=== PATIENT | female | born 1960 | race Caucasian/White ===

== ENCOUNTER 2016-11-13 12:18 | Emergency (ER) | payer OTHER ==
[~2016-11-13 12:18] MED LIST: CLONAZEPAM1 MG PO; CYANOCOBAL1000 MCG/2 IM; ESCITALOPRAM OX20 MG PO; FIORICET 50-301 EACH PO; HYGROTON 25MG T25 MG PO; PREDNISONE 20MG20 MG PO; PROAIR HFA8.5 GM INH; PROPRANOLOL HCL40 M1 PO; VICODIN5-300 PO; VITAMIN D250000 UNIT PO
--- NOTE | 2016-11-13 13:58 | ED GENERAL ADULT ---
History of Present Illness General Chief Complaint: General Adult Stated Complaint: WEAKNESS L LEG AND HIP PAIN Source: patient Exam Limitations: no limitations Vital Signs & Intake/Output Vital Signs & Intake/Output ED Intake and Output 11/14 0000 11/13 1200 Intake Total Output Total 1 Balance -1 Output, Urine 1 Allergies Coded Allergies: Penicillins (Severe, UNKNOWN PER PT 01/10/16) Reconcile Medications Albuterol Sulfate (Albuterol Sulfate Hfa) 0.09 MG/Actuation EM 2 PUFF INH PRN SHORTNESS OF BREATH (Reported) 90 MCG PER PUFF Butalb/Acetaminophen/Caffeine (Fioricet 50-300-40 MG Capsule) 50 MG-300 MG-40 MG CAPSULE 1 TAB PO Q6P PRN MIGRAINE HEADACHE Chlorthalidone (Hygroton 25MG Tablet) 25 MG TAB 1 TAB PO DAILY BP (Reported) Clonazepam 1 MG TAB 1 TAB PO TID PRN ANXIETY (Reported) CYANOCOBALAMIN (VITAMIN B-12) (Cyanocobalamin Injection) 1,000 MCG/ML CHEMA 1 ML IM Q30D SUPPLEMENT (Reported) ERGOCALCIFEROL (VITAMIN D2) (Vitamin D2) 50,000 IU SGL 50,000 IU PO Q30D VITAMIN D SUPPLEMENT (Reported) Escitalopram Oxalate 20 MG TAB 1 TAB PO DAILY MENTAL HEALTH (Reported) HYDROCODONE/ACETAMINOPHEN (Hydrocodon-Acetaminophen 5-325) 1 TAB TAB 1 TAB PO TID PRN pain Naproxen (Naprosyn) 500 MG TABLET 1 TAB PO BID PRN PAIN AND INFLAMMATION Prednisone 20 MG TAB 2 TAB PO DAILY HEADACHES Propranolol Hydrochloride (Propranolol HCl) 10 MG TAB 1 TAB PO BID BP/ANXIETY (Reported) Triage Note: PT PRESENTS TO ER C/O OF PAIN AND WEAKNESS TO LEFT LEG. PT STATES PAIN STARTS AT LEFT HIP AREA AND RADIATES DOWN ENTIRE LEG. PT STATES SHE HAS A HX OF MS AND THROMBOPHLEBITIS AND EVERYTIME HER THROMBOPHLEBITIS ACTS UP SHE HAS TO GET ULTRASOUNDED Triage Nurses Notes Reviewed? yes HPI: This patient is a 56-year-old female with a past medical history including multiple sclerosis and thrombophlebitis who presented to the emergency department today for evaluation of pain in her left lower leg. The patient reported that she first noticed the pain on Friday and reported that it has been worsening again. She reported that the pain gets up to a 20 out of 10 and is located primarily on the inside of her left knee and tends to shoot up to her side and lower back. She also reported intermittent chest pain and difficulty breathing due to this pain. She feels left-sided calf pain with ambulation which also exacerbates the pain. No palliative factors. The patient reported that she was told that if she had leg pain to come to the emergency department for rule out DVT. The patient denied any arm pain, jaw pain, headaches, visual changes, or any other associated symptoms. No bowel or bladder incontinence. No saddle paresthesias. No urinary symptoms. (ANIA MERA PA-C) Past History Travel History Traveled to [place] past 21 day No Medical History Any Pertinent Medical History? 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 No (ANIA MERA PA-C) Review of Systems Review of Systems Constitutional: Reports: no symptoms. EENTM: Reports: no symptoms. Respiratory: Reports: see HPI. Cardiovascular: Reports: see HPI. GI: Reports: no symptoms. Genitourinary: Reports: no symptoms. Musculoskeletal: Reports: see HPI. Skin: Reports: no symptoms. Neurological/Psychological: Reports: no symptoms. All Other Systems: Reviewed and Negative (ANIA MERA PA-C) Physical Exam Physical Exam General Appearance: well developed/nourished, no apparent distress, alert, awake Comments: Well-developed well-nourished person in no acute distress HEENT: Normal EENT exam, head normocephalic, moist mucous membranes Pupils equally round and reactive to light. Neck: Supple, no lymphadenopathy Back: Normal inspection. No midline tenderness. No CVA tenderness. Cardiovascular: Regular rate and rhythm with no murmurs, rubs, or gallops. No carotid bruits. No JVD Respiratory: Chest nontender. No respiratory distress. Breath sounds clear to auscultation bilaterally with no wheezes, rales, rhonchi Abdomen: Soft, nontender and nondistended Extremity: No edema, normal and equal pulses. Left-sided calf tenderness. Positive Homans sign. Tenderness to palpation over the medial aspect of the left knee with no knee joint effusion or overlying erythema or edema. Full range of motion at the knee, ankle, and hip. Neuro: Alert oriented x3, cranial nerves II through XII grossly intact. Skin: No appreciable rash on exposed skin, skin is warm and dry. Psych: Mood and affect is normal Core Measures ACS in differential dx? Yes CVA/TIA Diagnosis: No Severe Sepsis Present: No Septic Shock Present: No (SAMARIA AVITIA,ANIA) Progress Differential Diagnoses I considered the following diagnoses in my evaluation of the patient: [ Ureterolithiasis, urinary tract infection, pyelonephritis, superficial thrombophlebitis, DVT, PE, ACS] Plan of Care: Orders Procedure Date/time Status TROPONIN LEVEL 11/13 1343 Complete D-DIMER 11/13 1343 Complete COMPREHENSIVE METABOLIC PANEL 11/13 1343 Complete CBC WITHOUT DIFFERENTIAL 11/13 134 Complete EKG 11/13 1226 Active Laboratory Tests 11/13/16 1405: Anion Gap 7, Estimated GFR > 60, BUN/Creatinine Ratio 20.0, Glucose 90, Calcium 9.1, Total Bilirubin 0.7, AST 16, ALT 29, Alkaline Phosphatase 92, Troponin I < 0.01, Total Protein 7.4, Albumin 4.3, Globulin 3.1, Albumin/Globulin Ratio 1.4, D-Dimer 200, CBC w Diff NO MAN DIFF REQ, RBC 4.91, MCV 89.1, MCH 29.8, RDW 14.0, MPV 9.3, Gran % 63.9, Lymphocytes % 30.8, Monocytes % 3.6, Eosinophils % 0.9, Basophils % 0.8, Absolute Granulocytes 6.6 H, Absolute Lymphocytes 3.2, Absolute Monocytes 0.4, Absolute Eosinophils 0.1, Absolute Basophils 0.1, PUBS MCHC 33.4 Diagnostic Imaging: Viewed by Me: CT Scan, Ultrasound. Discussed w/RAD: CT Scan, Ultrasound. Radiology Impression: PATIENT: BURAK GUTIÉRREZ PRESENT AGE: 56 PATIENT ACCOUNT NO: [id number] : 60 LOCATION: [facility] ORDERING PHYSICIAN: ANIA MERA PA-C SERVICE DATE: 11/13/16 EXAM TYPE: CAT - CT LUMB SPINE WO IV CONTRAST EXAMINATION: CT LUMBAR SPINE WITHOUT CONTRAST CLINICAL INFORMATION: Evaluate for disc herniation. Canal stenosis. Pain. COMPARISON: No relevant prior imaging is available. TECHNIQUE: Helical non -contrast CT images were obtained through the lumbar spine and 1.25 and 2.5 mm axial reconstructions were reviewed along with sagittal and coronal MPRs. DLP: 1115 mGy-cm. FINDINGS: There is anatomic alignment and position of the vertebral bodies and posterior elements of the lumbar spine in the sagittal dimension. Vertebral body heights are preserved. Intervertebral disc spaces are maintained at all levels. No evidence of acute fracture. At T12-L1, L1-L2, and L2-L3 the annular contours are normal. No canal or neuroforaminal compromise at these 3 levels. At L3-L4 there is a shallow left foraminal protrusion causing mild mass effect on the foraminal segment of the left L3 nerve root. Bilateral facet degenerative change. No canal stenosis. At L4-L5 there is a diffuse annular bulge. Advanced bilateral facet degenerative change. No canal stenosis. No foraminal nerve root compression. At L5-S1 there is a diffuse annular bulge. Advanced bilateral facet degenerative change. No canal stenosis. No foraminal nerve root compression. Limited visualization of the retroperitoneal structures reveals no abnormal finding. Psoas and paraspinal muscle groups are symmetric. IMPRESSION: There is a shallow left foraminal protrusion at L3-L4 that causes no more than mild mass effect on the foraminal segment of left L3 nerve root. Otherwise no canal or neuroforaminal compromise within the lumbar spine. There are advanced facet degenerative changes at the levels of L3-L4, L4-L5, and L5- S1. DICTATED BY: GAGAN STANTON MD DATE/TIME DICTATED:11/13/161418 BELT PICKER:ROCÍO DATE/TIME TRANSCRIBED:11/13/161418 CONFIDENTIAL, DO NOT COPY WITHOUT APPROPRIATE AUTHORIZATION. <Electronically signed in Other Vendor System> SIGNED BY: GAGAN STANTON MD 11/13/161426, PATIENT: BURAK GUTIÉRREZ PRESENT AGE: 56 PATIENT ACCOUNT NO: [id number] : 60 LOCATION: [facility] ORDERING PHYSICIAN: ANIA MERA PA-C SERVICE DATE: 11/13/16 EXAM TYPE: US - US-UNILATERAL VENOUS DOPPLER EXAMINATION: US TRIPLEX LOWER EXTREMITY, LEFT CLINICAL INFORMATION: Left lower extremity pain. COMPARISON: Venous duplex examinations dated 07/10/2016 and 09/04. TECHNIQUE: Color-flow triplex imaging with spectral analysis and compression Doppler were performed on the lower extremities. FINDINGS: Respiratory variation, normal compression and augmented flow are noted throughout the left lower extremity. The visualized common femoral vein, proximal greater saphenous vein, femoral vein, profunda femoral vein, popliteal vein and visualized mid calf venous segments show no evidence of deep venous thrombosis. There is no Cisse's cyst. IMPRESSION: Normal triplex scan without evidence of deep venous thrombosis involving the left lower extremity. DICTATED BY: PATRIA PALMER MD DATE/TIME DICTATED:11/13/161520 BELT PICKER: ROCÍO DATE/TIME TRANSCRIBED:11/13/161520 CONFIDENTIAL, DO NOT COPY WITHOUT APPROPRIATE AUTHORIZATION. <Electronically signed in Other Vendor System> SIGNED BY: PATRIA PALMER MD 11/13/161527 Initial ED EKG: normal axis, normal intervals, normal sinus rhythm, no ST T wave changes, 83 beats per minute (ANIA MERA PA-C) Departure Departure Disposition: HOME OR SELF CARE Condition: Stable Clinical Impression Primary Impression: Thrombophlebitis Referrals: BAHMAN LOZOYA MD (PCP/Family) AUDI OALKEY MD Additional Instructions: Please apply warm compresses to the affected area. Take naproxen as prescribed for pain and inflammation. You may call the vascular physician whose information has been provided to you in this packet for further evaluation. Return to the emergency department for any worsening symptoms or concerns. Departure Forms: Customer Survey General Discharge Information Prescriptions: Current Visit Scripts Naproxen (Naprosyn) 1 TAB PO BID PRN PAIN AND INFLAMMATION #20 TAB (ANIA MERA PA-C) PA/APARTMENT MAINTENANCE Co-Sign Statement Statement: ED Attending supervision documentation- [] I saw and evaluated the patient. I have also reviewed all the pertinent lab results and diagnostic results. I agree with the findings and the plan of care as documented in the PA's/APARTMENT MAINTENANCE's documentation. [X] I have reviewed the ED Record and agree with the PA's/APARTMENT MAINTENANCE's documentation. [] Additions or exceptions (if any) to the PAs/APARTMENT MAINTENANCE's note and plan are summarized below: [] (MILLI REICH,GEREMIAS) Critical Care Note Critical Care Note Critical Care Time: non-applicable (SAMARIA AVITIA,ANIA)
[2016-11-13 14:13] LABS: ABSOLUTE BASOPHIL COUNT 0.1 /CUMM (0.0-0.2); ABSOLUTE EOSINOPHIL COUNT 0.1 /CUMM (0.0-0.7); ABSOLUTE GRANULOCYTE CT 6.6 /CUMM (1.4-6.5); ABSOLUTE LYMPH COUNT 3.2 /CUMM (1.2-3.4); ABSOLUTE MONOCYTE COUNT 0.4 /CUMM (0.10-0.60); BASOPHIL % 0.8 % (0.0-2.0); EOSINOPHIL % 0.9 % (0-5); GRANULOCYTE % 63.9 % (42.2-75.2); HEMATOCRIT 43.7 % (37-47); MEAN CORPUSCULAR HGB 29.8 PG (27.0-31.0); MEAN CORPUSCULAR HGB CONC 33.4 G/DL (33.0-37.0); MEAN CORPUSCULAR VOLUME 89.1 FL (81.0-99.0); MEAN PLATELET VOLUME 9.3 FL (7.4-10.4); PLATELET COUNT 184 /CUMM (130-400); RED BLOOD CELL CT 4.91 /CUMM (4.20-5.40); WHITE BLOOD CELL COUNT 10.4 /CUMM (4.8-10.8)
--- NOTE | 2016-11-13 14:27 | CT SCAN REPORT ---
EXAMINATION: CT LUMBAR SPINE WITHOUT CONTRAST CLINICAL INFORMATION: Evaluate for disc herniation. Canal stenosis. Pain. COMPARISON: No relevant prior imaging is available. TECHNIQUE: Helical non-contrast CT images were obtained through the lumbar spine and 1.25 and 2.5 mm axial reconstructions were reviewed along with sagittal and coronal MPRs. DLP: 1115 mGy-cm. FINDINGS: There is anatomic alignment and position of the vertebral bodies and posterior elements of the lumbar spine in the sagittal dimension. Vertebral body heights are preserved. Intervertebral disc spaces are maintained at all levels. No evidence of acute fracture. At T12-L1, L1-L2, and L2-L3 the annular contours are normal. No canal or neuroforaminal compromise at these 3 levels. At L3-L4 there is a shallow left foraminal protrusion causing mild mass effect on the foraminal segment of the left L3 nerve root. Bilateral facet degenerative change. No canal stenosis. At L4-L5 there is a diffuse annular bulge. Advanced bilateral facet degenerative change. No canal stenosis. No foraminal nerve root compression. At L5-S1 there is a diffuse annular bulge. Advanced bilateral facet degenerative change. No canal stenosis. No foraminal nerve root compression. Limited visualization of the retroperitoneal structures reveals no abnormal finding. Psoas and paraspinal muscle groups are symmetric. IMPRESSION: There is a shallow left foraminal protrusion at L3-L4 that causes no more than mild mass effect on the foraminal segment of left L3 nerve root. Otherwise no canal or neuroforaminal compromise within the lumbar spine. There are advanced facet degenerative changes at the levels of L3-L4, L4-L5, and L5-S1.
--- NOTE | 2016-11-13 15:28 | ULTRASOUND REPORT ---
EXAMINATION: US TRIPLEX LOWER EXTREMITY, LEFT CLINICAL INFORMATION: Left lower extremity pain. COMPARISON: Venous duplex examinations dated 07/10/2016 and 09/04/2007. TECHNIQUE: Color-flow triplex imaging with spectral analysis and compression Doppler were performed on the lower extremities. FINDINGS: Respiratory variation, normal compression and augmented flow are noted throughout the left lower extremity. The visualized common femoral vein, proximal greater saphenous vein, femoral vein, profunda femoral vein, popliteal vein and visualized mid calf venous segments show no evidence of deep venous thrombosis. There is no Cisse's cyst. IMPRESSION: Normal triplex scan without evidence of deep venous thrombosis involving the left lower extremity.
[2016-11-13] MEDS ORDERED: NAPROSYN500 M1 PO (15:48)
[2016-11-13 15:52] VITALS: BP 161/87
== END 2016-11-13 16:00 ==
LOC: ERH 12:18
PROVIDERS: Physician Assistant
DX: I80.9 Phlebitis and thrombophlebitis of unspecified site (principal)
CPT/HCPCS: 93005; 93010

== ENCOUNTER 2017-01-06 22:09 | Emergency (ER) | payer OTHER ==
[~2017-01-06] VITALS: Ht 162.6 cm; Wt 81.6 kg
[~2017-01-06 22:09] MED LIST changes: +NAPROSYN500 M1 PO
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
[2017-01-06 23:20] VITALS: BP 147/90
--- NOTE | 2017-01-06 23:28 | RADIOLOGY REPORT ---
EXAMINATION: XR WRIST, LEFT CLINICAL INFORMATION: Laceration left anterior wrist. COMPARISON: No relevant prior imaging available. TECHNIQUE: AP, lateral, and oblique views of the left wrist. FINDINGS: There is no retained radiodense foreign body. No acute fracture or dislocation. Joint spaces are maintained. Proximal and distal carpal rows are intact. Negative ulnar variance. Mild swelling along the volar surface of the left wrist at the base of the hypothenar eminence. IMPRESSION: Unremarkable examination with no evidence of a radiodense retained foreign body.
== END 2017-01-06 23:22 ==
LOC: ERH 22:09
DX: S61.512A Laceration without foreign body of left wrist, initial encounter (principal); W25.XXXA Contact with sharp glass, initial encounter; Y92.9 Unspecified place or not applicable; Y93.9 Activity, unspecified
CPT/HCPCS: 73110-LT; 90471; 90714

== ENCOUNTER 2017-03-17 13:56 | Emergency (ER) | payer OTHER ==
[~2017-03-17] VITALS: Ht 160 cm; Wt 84.8 kg
[2017-03-17] MEDS ORDERED: DEXTROAMP-AMPHE10 MG PO (14:56)
[2017-03-17] MEDS ORDERED: TOPIRAMATE25 M2 PO (14:59)
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
[2017-03-17 16:13] LABS: ABSOLUTE BASOPHIL COUNT 0.1 /CUMM (0.0-0.2); ABSOLUTE EOSINOPHIL COUNT 0.1 /CUMM (0.0-0.7); ABSOLUTE GRANULOCYTE CT 9.5 /CUMM (1.4-6.5); ABSOLUTE LYMPH COUNT 3.9 /CUMM (1.2-3.4); ABSOLUTE MONOCYTE COUNT 0.5 /CUMM (0.10-0.60); BASOPHIL % 0.6 % (0.0-2.0); EOSINOPHIL % 0.7 % (0-5); MEAN CORPUSCULAR HGB 29.5 PG (27.0-31.0); MEAN CORPUSCULAR HGB CONC 33.2 G/DL (33.0-37.0); MEAN CORPUSCULAR VOLUME 88.8 FL (81.0-99.0); PLATELET COUNT 223 /CUMM (130-400); RBC DISTRIBUTION WIDTH 13.6 % (11.5-14.5); RED BLOOD CELL CT 5.51 /CUMM (4.20-5.40)
[2017-03-17 16:15] LABS: GRANULOCYTE % 67.4 % (42.2-75.2)
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
[2017-03-18 13:01] VITALS: BP 140/88
== END 2017-03-18 13:45 ==
LOC: ERH 13:56
PROVIDERS: Emergency Medicine
DX: F31.9 Bipolar disorder, unspecified (principal)
CPT/HCPCS: 80307; G0463; G0480

== ENCOUNTER 2018-02-11 16:40 | Inpatient (IN) | payer OTHER ==
[~2018-02-11] VITALS: Ht 162.6 cm; Wt 83.9 kg
[~2018-02-11 16:40] MED LIST changes: +DEXTROAMP-AMPHE10 MG PO; +PERCOCET 5-3251 EACH PO; +TOPIRAMATE25 M2 PO
[2018-02-11 17:19] LABS: ABSOLUTE BASOPHIL COUNT 0 /CUMM (0.0-0.2); ABSOLUTE EOSINOPHIL COUNT 0.2 /CUMM (0.0-0.7); ABSOLUTE GRANULOCYTE CT 8.7 /CUMM (1.4-6.5); ABSOLUTE LYMPH COUNT 3.4 /CUMM (1.2-3.4); ABSOLUTE MONOCYTE COUNT 0.7 /CUMM (0.10-0.60); BASOPHIL % 0.4 % (0.0-2.0); EOSINOPHIL % 1.2 % (0-5); GRANULOCYTE % 66.6 % (42.2-75.2); HEMATOCRIT 48.8 % (37-47); MEAN CORPUSCULAR HGB 29.5 PG (27.0-31.0); MEAN CORPUSCULAR HGB CONC 32.7 G/DL (33.0-37.0); MEAN CORPUSCULAR VOLUME 90.2 FL (81.0-99.0); MEAN PLATELET VOLUME 9.2 FL (7.4-10.4); PLATELET COUNT 243 /CUMM (130-400); RBC DISTRIBUTION WIDTH 14.7 % (11.5-14.5); RED BLOOD CELL CT 5.42 /CUMM (4.20-5.40); WHITE BLOOD CELL COUNT 13.1 /CUMM (4.8-10.8)
--- NOTE | 2018-02-11 17:46 | ED CARDIAC/CP/PALPITATIONS ---
See Addendum History of Present Illness General Chief Complaint: General Adult Stated Complaint: X2MO "HEART FLUTTERS" LUE NUMB HEART POUNDING Source: patient Exam Limitations: no limitations Allergies Coded Allergies: Penicillins (Severe, UNKNOWN PER PT 01/10/16) Reconcile Medications Albuterol Sulfate (Proair Hfa) 90 MCG HFA.AER.AD 2 PUF INH Q4-6 PRN PRN SHORTNESS OF BREATH (Reported) Butalb/Acetaminophen/Caffeine (Fioricet 50-300-40 MG Capsule) 50 MG-300 MG-40 MG CAPSULE 1 TAB PO Q6P PRN MIGRAINE HEADACHE Cyanocobalamin (Vitamin B-12) (Cyanocobalamin Injection) 1,000 MCG/ML VIAL 1 ML IM QSUN VITAMIN SUPPORT (Reported) Dextroamphetamine/Amphetamine (Dextroamp-Amphetamin 10 MG Tab) 10 MG TABLET 1 TAB PO BID MS (Reported) Ergocalciferol (Vitamin D2) (Vitamin D2) 50,000 UNIT CAPSULE 1 CAP PO QSUN VITAMIN SUPPORT (Reported) Escitalopram Oxalate 20 MG TABLET 1 TAB PO DAILY MENTAL HEALTH (Reported) Oxycodone HCl/Acetaminophen (Percocet 5-325 MG Tablet) 5 MG-325 MG TABLET 1 TAB PO TID PRN PAIN Propranolol HCl 40 MG TABLET 1 TAB PO DAILY BP (Reported) Topiramate 25 MG TABLET 1 TAB PO BID HEADACHE (Reported) Triage Note: 57 YO FEMALE TO TRIAGE C/O FEELING OF HEART RACING YESTERDAY, STATES "I WANT TO GET IT CHECKED OUT" DENIES HEART RACING AT THIS TIME. STATES "I JUST FEEL TIRED RIGHT NOW" STATES "I AM JUST EXHAUSTED" Triage Nurses Notes Reviewed? yes Onset: Abrupt Duration: day(s): (1), better, changing over time, intermittent Timing: recent history Quality/Severity: moderate, pressure Location: central Radiation: shoulders, arms Activities at Onset: rest Prior Chest Pain/Card Workup: no prior chest pain, no prior cardiac workup, non- cardiac Nitro Today/Relief: no nitro taken today Aspirin Today: 325 mg x 1, provided by ED Associated Symptoms: palpitations, shortness of breath, chest pain, nausea vomiting LMP (ages 10-50): post menopausal : No Patient currently breastfeeds: No HPI: 57 year old female past medical history of hypertension and multiple sclerosis as her evaluation of palpitations, chest pain, shortness of breath and fatigue. Patient states that she's been having palpitations intimately over the past month. States that they occur randomly. Last night he palpitations were very severe. This episode was also associated with chest pain shortness of breath nausea and vomiting. The pain is located in the center of her chest and radiates the left upper extremity. Described as pressure intermittently sharp. This lasted for approximately 2 hours before resolving. She states that she woke up today with shortness of breath but no more chest pain palpitations nausea vomiting. No dizziness or lightheadedness. No hemoptysis or lower extremity edema. She's never had a heart attack in the past. She denies worsening symptoms on exertion. No history of coronary artery disease that she knows about. She's never seen a forklift driver. No back pain abdominal pain. No recent surgery. (Franko Nguyen) Vital Signs & Intake/Output Vital Signs & Intake/Output Vital Signs Date Time Temp Pulse Resp B/P B/P Pulse O2 O2 Flow FiO2 Mean Ox Delivery Rate 02/11 1858 98.4 75 18 142/84 98 Room Air 02/11 1647 98.6 106 18 152/92 98 Room Air (Anna REICH,Rob Tam) Past History Travel History Traveled to [place] past 21 day No Medical History Any Pertinent Medical History? see below for history Neurological: multiple sclerosis, TRIGEMINAL NEURALGIA EENT: NONE Cardiovascular: hypertension Respiratory: NONE Gastrointestinal: NONE Hepatic: NONE Renal: NONE Musculoskeletal: THROMBOPHLEBITIS Psychiatric: NONE Endocrine: NONE Blood Disorders: NONE Cancer(s): NONE CLIENT CARE SPECIALIST/Reproductive: NONE Tetanus Vaccine: 01/06/17 Surgical History Surgical History: non-contributory Psychosocial History Who do you live with Patient/Self What is your primary language Sammarinese Tobacco Use: Current Daily Use Daily Tobacco Use Amount/Type: => 5 Cigarettes daily Family History Hx Contributory? No (Franko Nguyen) Review of Systems Review of Systems Constitutional: Reports: malaise, weakness. EENTM: Reports: no symptoms. Respiratory: Reports: see HPI, short of breath. Cardiovascular: Reports: see HPI, chest pain, palpitations. GI: Reports: nausea, vomiting. Genitourinary: Reports: no symptoms. Musculoskeletal: Reports: no symptoms. Skin: Reports: no symptoms. Neurological/Psychological: Reports: no symptoms. Hematologic/Endocrine: Reports: no symptoms. Immunologic/Allergic: Reports: no symptoms. All Other Systems: Reviewed and Negative (Franko Nguyen) Physical Exam Physical Exam General Appearance: well developed/nourished, no apparent distress, alert, awake Head: atraumatic, normal appearance Eyes: Bilateral: normal appearance, PERRL, EOMI. Ears, Nose, Throat: normal pharynx, normal ENT inspection, hearing grossly normal Neck: normal inspection, supple, full range of motion, no JVD no carotid bruits Respiratory: normal breath sounds, chest non-tender, no respiratory distress, lungs clear Cardiovascular: regular rate/rhythm, normal peripheral pulses Peripheral Pulses: 2+ radial (R), 2+ radial (L) Gastrointestinal: normal bowel sounds, soft, non-tender, no organomegaly Back: normal inspection, normal range of motion, no vertebral tenderness Extremities: normal inspection, normal range of motion, no edema Neurologic/Psych: no motor/sensory deficits, awake, alert, oriented x 3, normal gait, normal mood/affect Skin: intact, normal color, warm/dry Lymphatic: no anterior cervical obed Core Measures ACS in differential dx? Yes CVA/TIA Diagnosis No Sepsis Present: No Sepsis Focused Exam Completed? No (Franko Nguyen) Progress Differential Diagnosis: AMI, aortic dissection, atrial fibrillation, CHF/pulm edema, costochondritis, musculoskeletal pain, myocarditis, pancreatitis, pericarditis, pneumonia, pneumothorax, PSVT, pulmonary embolism, PUD/GERD, PVCs/ PACs, unstable angina, V-fib/V-Tach, WPW syndrome Diagnostic Imaging: Viewed by Me: Radiology Read. Discussed w/RAD: Radiology Read. CXR Impression: PATIENT: BURAK GUTIÉRREZ PRESENT AGE: 57 PATIENT ACCOUNT NO: [id number] : 60 LOCATION: [facility] ORDERING PHYSICIAN: Franko ANTONIO SERVICE DATE: 02/11/18 EXAM TYPE: RAD - XRY- PORTABLE CHEST XRAY EXAMINATION: XR PORTABLE CHEST CLINICAL INFORMATION: Chest pain and shortness of breath COMPARISON: 11/25/2006 TECHNIQUE: Portable frontal view of the chest was obtained. FINDINGS: Cardiac leads overlie the chest. The lungs are well expanded. There is no focal consolidation, edema, or effusion. No pneumothorax. The cardiomediastinal silhouette is within normal limits. No acute osseous abnormality. IMPRESSION: No acute pulmonary findings. DICTATED BY: Andrew Martinez MD DATE/TIME DICTATED:02/11/181830 IMMIGRATION INSPECTOR: ROCÍO DATE/TIME TRANSCRIBED:02/11/181830 CONFIDENTIAL, DO NOT COPY WITHOUT APPROPRIATE AUTHORIZATION. <Electronically signed in Other Vendor System> SIGNED BY: Anrdew Martinez MD 02/11/181835 Initial ED EKG: normal sinus rhythm, LEFT ATRIAL ABN Prior EKG: unchanged Rhythm Strip: normal sinus rhythm (aMynor ANTONIO,Franko) Plan of Care: Orders Procedure Date/time Status Heart Healthy Diet 02/12 B Active TROPONIN LEVEL 02/12 0500 Active LIPID PANEL 02/12 0500 Active GLYCOSYLATED HGB 02/12 0500 Active EKG 02/12 0500 Active TROPONIN LEVEL 02/11 2300 Active EKG 02/11 2300 Active FingerStick- Glucose 02/11 1958 Active Pathway - chart 02/11 1955 Active House Staff 02/11 1955 Active Patient Data 02/11 1955 Active Code Status 02/11 1955 Active Patient Data 02/11 194 Active Admit to inpatient 02/11 1934 Active Add-on Test (ER Only) 02/11 1806 Active Add-on Test (ER Only) 02/11 1800 Active Intake & Output 02/11 1715 Active PARTIAL THROMBOPLASTIN TIME 02/11 1711 Complete PROTHROMBIN TIME 02/11 1711 Complete B-TYPE NATRIURETIC PEP (BNP) 02/11 1711 Complete D-DIMER 02/11 1655 Complete Telemetry/Hoop Punch Operator Helper 02/11 165 Active URINE DRUG SCREEN FOR ER ONLY 02/11 1654 Complete URINALYSIS 02/11 1654 Complete TSH REFLEX 02/11 1654 Complete TROPONIN LEVEL 02/11 1654 Complete MAGNESIUM 02/11 165 Complete COMPREHENSIVE METABOLIC PANEL 02/11 1654 Complete CBC WITHOUT DIFFERENTIAL 02/11 165 Complete EKG 02/11 165 Active VTE Mechanical Prophylaxis 02/11 UNK Active Current Medications Sig/Jair Start time Last Medication Dose Stop Time Status Admin Atorvastatin Calcium 40 MG 1700 02/12 1700 AC (Lipitor) Aspirin 81 MG DAILY 02/12 09 AC (Aspirin) Clopidogrel Bisulfate 75 MG DAILY 02/12 09 AC (Plavix) Morphine Sulfate 2 MG Q4P PRN 02/12 2000 AC (MORPHINE SULFATE) Heparin Sodium 25,000 UNIT Q24H 02/11 1815 AC 02/11 (Porcine) 183 (Heparin) Sodium Chloride 500 ML Propranolol HCl 60 MG ONCE ONE 02/11 1745 CAN (Inderal 40 MG 02/11 1746 Tablet) Laboratory Tests 02/11/18 1723: Urine Opiates Screen < 100, Methadone Screen < 40, Barbiturate Screen < 60, Ur Phencyclidine Scrn < 6.00, Amphetamines Screen 1401 H, U Benzodiazepines Scrn < 85, Urine Cocaine Screen < 50, Urine Cannabis Screen 69.90 H, Urinalysis MOD H , Urine Color YEL, Urine Clarity HAZY H, Urine pH 6.0, Ur Specific [place] >= 1.030, Urine Protein NEG, Urine Ketones NEG, Urine Nitrite NEG, Urine Bilirubin NEG, Urine Urobilinogen 0.2, Ur Leukocyte Esterase NEG, Ur Microscopic SEDIMENT EXAMINED, Urine WBC 1-3 H, Ur Epithelial Cells FEW, Urine Crystals RARE [place] OX, Urine Bacteria MANY H, Urine Hemoglobin NEG, Urine Glucose NEG 02/11/18 1711: Anion Gap 11, Estimated GFR > 60, BUN/Creatinine Ratio 22.5, Glucose 100 H, Calcium 9.6, Magnesium 1.8, Total Bilirubin 0.6, AST 24, ALT 21, Alkaline Phosphatase 84, Troponin I 1.05 *H, Xcv-X-Jokmgkokmbs Pept 882 H, Total Protein 7.2, Albumin 4.1, Globulin 3.1, Albumin/Globulin Ratio 1.3, TSH &T3 &Free T4 Intrp 1.480, PT 12.1, INR 1.11, APTT 29, D-Dimer High Sensitivty < 200, CBC w Diff NO MAN DIFF REQ, RBC 5.42 H, MCV 90.2, MCH 29.5, MCHC 32.7 L, RDW 14.7 H , MPV 9.2, Gran % 66.6, Lymphocytes % 26.1, Monocytes % 5.7, Eosinophils % 1.2, Basophils % 0.4, Absolute Granulocytes 8.7 H, Absolute Lymphocytes 3.4, Absolute Monocytes 0.7 H, Absolute Eosinophils 0.2, Absolute Basophils 0 Patient seen and evaluated. She is reporting episodes of chest pain shortness breath palpitations that occurred last night lasted for 2 hours. Symptoms improved after sleeping when she woke up today she only had shortness of breath. No more chest pain or palpitations. Vital signs are stable. EKG does not show any acute changes. Blood work was obtained and shows a troponin of 1.05. D- dimer is negative chest x-ray is clear. Remaining blood work does not show any significant changes. Spoke with Dr. Rodrigues and his partner from cardiology. They recommended aspirin Plavix and heparin. Patient denies any melena or rectal bleeding. They recommend admitting to the ICU for possibel type 1 NSTEMI. Patient will require telemetry, serial enzymes, serial EKGs, cardiology consult, IV heparin, medication adjustment, echocardiogram, stress test, monitoring of vital signs. Case discussed with dr woodward he agrees. DR WOODWARD SPOKE WITH HOSPITALIST FOR ADMISSION (Franko Nguyen) (Rob Castillo MD) Departure Departure Disposition: STILL A PATIENT Condition: Stable Clinical Impression Primary Impression: NSTEMI (non-ST elevated myocardial infarction) Referrals: Diana Hebert DO (PCP/Family) Departure Forms: Customer Survey General Discharge Information Admission Note Spoke With: Dez Sidhu MD Documentation of Exam: Documentation of any treatments & extenuating circumstances including Concerns Regarding Discharge (functional status, medication knowledge or non-compliance, living conditions, etc.) that warrant an admission rather than observation: [ Patient will require telemetry, serial enzymes, serial EKGs, cardiology consult, IV heparin, medication adjustment, echocardiogram, stress test, monitoring of vital signs.] (Franko Nguyen) PA/RD LAB TECHNICIAN Co-Sign Statement Statement: ED Attending supervision documentation- [] I saw and evaluated the patient. I have also reviewed all the pertinent lab results and diagnostic results. I agree with the findings and the plan of care as documented in the PA's/RD LAB TECHNICIAN's documentation. [X] I have reviewed the ED Record and agree with the PA's/RD LAB TECHNICIAN's documentation. [] Additions or exceptions (if any) to the PAs/RD LAB TECHNICIAN's note and plan are summarized below: [] (Rob Castillo MD) PA/RD LAB TECHNICIAN Co-Sign Statement Statement: ED Attending supervision documentation- x I saw and evaluated the patient. I have also reviewed all the pertinent lab results and diagnostic results. I agree with the findings and the plan of care as documented in the PA's/RD LAB TECHNICIAN's documentation. Palpitations, chest pain with elevated troponin, non STEMI [] I have reviewed the ED Record and agree with the PA's/RD LAB TECHNICIAN's documentation. [] Additions or exceptions (if any) to the PAs/RD LAB TECHNICIAN's note and plan are summarized below: [] (Sander REICH,Casimiro) Critical Care Note Critical Care Note Critical Care Time: 30-74 min (Franko Nguyen)
[2018-02-11 18:16] LABS: PT 12.1 SEC (9.4-12.5); PTT 29 SEC (25-37)
--- NOTE | 2018-02-11 18:36 | RADIOLOGY REPORT ---
EXAMINATION: XR PORTABLE CHEST CLINICAL INFORMATION: Chest pain and shortness of breath COMPARISON: 11/25/2006 TECHNIQUE: Portable frontal view of the chest was obtained. FINDINGS: Cardiac leads overlie the chest. The lungs are well expanded. There is no focal consolidation, edema, or effusion. No pneumothorax. The cardiomediastinal silhouette is within normal limits. No acute osseous abnormality. IMPRESSION: No acute pulmonary findings.
--- NOTE | 2018-02-11 19:53 | History & Physical ---
Sally Astudillo 02/11/181952: General Information and HPI MD Statement: I have seen and personally examined BURAK GUTIÉRREZ and documented this H&P. The patient is a 57 year old F who presented with a patient stated chief complaint of chest pressure and palpitation associated with diaphoresis and left arm numbness yesterday.[]. Source of Information: patient Exam Limitations: no limitations History of Present Illness: Patient is 57-year-old woman with past medical history significant for multiple sclerosis diagnosed 2 years ago currently on disease modifying agent( she doesn't remember the name, allergic to rituximab), thrombophlebitis, bipolar disorder and hypertension came in with chief complaint of episode of severe chest pressure associated with pounding and fluttering sensations of heart, left arm numbness and diaphoresis last night. During this episode she was very short of breath and was trying to catch up her breath and stayed in this condition for about 1-2 hours without any significant relief. Afterwards she slept all night. She took off from her work this morning and sleep almost throughout the day but was worried about yesterday's episode and came to ED. She had an episode of palpitations almost a month ago which she attributes towards stress at work and anxiety and took leftover Klonopin from the past. She denied any episodes of shortness of breath and chest pressure like this in the past. She is following up with Dr. Ellison for MS which she was diagnosed in 2016. Initially she was started on rituximab but was allergic to that recently she was given 2 infusions of disease modifying agent but she doesn't remember the name and now she was told that she would have every 6 months. Currently she is in remission and denied any MS symptoms. At the time of interview she was not complaining of chest pressure or pain but had some pounding/fluttering sensations temporarily. She denied any vomiting but was nauseous last night. She denied diarrhea, constipation, headache, any urinary or bowel complaints. She endorses that she was getting short of breath lately with mild exertion but never been checked by a fun house operator and had no recent echocardiogram as well. Vital signs on admission were temperature 98.6, pulse 106, respiratory rate 18, blood pressure 152/92 and she was saturating 98% on room air. Labs showed WBC count 13.1, hemoglobin 16.0, hematocrit 48.6, platelet count 243 , INR 1.11, d-dimer is less than 200, sodium 145, potassium 3.9, chloride 106, anion gap 11, BUN 18, creatinine 0.8, glucose 100, troponin 1.05, proBNP 882 Chest x-ray was negative for any acute cardiopulmonary pathology EKG showed T-wave inversions in V1, flattening in V2 and ST depression in V3 Crusher Assembler was consulted by ER physician and was instructed to start heparin drip, Plavix and statin. Allergies/Medications Allergies: Coded Allergies: Penicillins (Severe, UNKNOWN PER PT 01/10/16) Home Med list Aspirin (Aspirin*) 81 MG TAB.CHEW 1 TAB PO DAILY HEART HEALTH (Reported) Atorvastatin Calcium 40 MG TABLET 40 MG PO 1700 hlp Clopidogrel Bisulfate (Plavix) 75 MG TABLET 75 MG PO DAILY CAD Cyanocobalamin (Vitamin B-12) (Cyanocobalamin Injection) 1,000 MCG/ML VIAL 1 ML IM QSUN VITAMIN SUPPORT (Reported) Dextroamphetamine/Amphetamine (Dextroamp-Amphetamin 10 MG Tab) 10 MG TABLET 1 TAB PO BID ADHD (Reported) Ergocalciferol (Vitamin D2) (Vitamin D2) 50,000 UNIT CAPSULE 1 CAP PO Q FRI AND FRIDAY VITAMIN SUPPORT (Reported) Heparin Sodium,Porcine/D5w (Heparin-D5w 25,000 Unit/250 Ml) 25,000 UNIT/250 ML ( 100 UNIT/ML) IV.SOLN 1 U IV D ACS, NSTEMI Nitroglycerin (Nitro-Bid) 2 % OINT...G. 0.5 GM TOP Q6 CHEST PAIN Propranolol LA (Inderal LA) 60 MG CAP.SA.24H 1 CAP PO DAILY HIGH BLOOD PRESSURE (Reported) Compliance With Home Meds: FAIR Past History Travel History Traveled to [place] past 21 day No Medical History Neurological: multiple sclerosis, TRIGEMINAL NEURALGIA EENT: NONE Cardiovascular: hypertension Respiratory: NONE Gastrointestinal: NONE Hepatic: NONE Renal: NONE Musculoskeletal: THROMBOPHLEBITIS Psychiatric: NONE Endocrine: NONE Blood Disorders: NONE Cancer(s): NONE WATER TREATMENT OPERATOR/Reproductive: NONE Tetanus Vaccine: 01/06/17 Surgical History Surgical History: non-contributory Past Family/Social History Family History Relations & Conditions if any maternal uncle (CAD). MOTHER (UTERINE CANCER). Psychosocial History Smoking Status: Current Everyday Smoker ETOH Use: denies use Functional Ability ADLs Independent: dressing, eating, toileting, bathing. Ambulation: independent IADLs Independent: shopping, housework, finances, food prep, telephone, transportation , medication admin. Review of Systems Review of Systems Constitutional: Reports: diaphoresis. Denies: chills, fever, malaise. EENTM: Denies: blurred vision, visual changes. Cardiovascular: Reports: chest pain, palpitations. Respiratory: Reports: short of breath. GI: Denies: bloating, constipation, diarrhea. Genitourinary: Denies: dysuria, frequency, hematuria. Musculoskeletal: Denies: back pain, gout. Exam & Diagnostic Data Last 24 Hrs of Vital Signs/I&O Vital Signs Date Time Temp Pulse Resp B/P B/P Pulse O2 O2 Flow FiO2 Mean Ox Delivery Rate 02/11 1858 98.4 75 18 142/84 98 Room Air 02/11 1647 98.6 106 18 152/92 98 Room Air Physical Exam General Appearance Alert, Oriented X3, Cooperative, No Acute Distress Skin No Rashes, No Breakdown, No Significant Lesion HEENT Atraumatic, PERRLA, EOMI, Mucous Membr. moist/pink Neck Supple, No JVD Cardiovascular Regular Rate, Normal S1, Normal S2 Lungs Clear to Auscultation, Normal Air Movement Abdomen Soft, No Tenderness, No Hepatospenomegaly Neurological Normal Speech, Strength at 5/5 X4 Ext, Normal Tone, Sensation Intact Extremities No Clubbing, No Cyanosis, No Edema Last 24 Hrs of Labs/Jason: Laboratory Tests 02/11/18 2046: Methadone Screen Cancelled, Barbiturate Screen Cancelled, Ur Phencyclidine Scrn Cancelled, Amphetamines Screen Cancelled, U Benzodiazepines Scrn Cancelled, Urine Cocaine Screen Cancelled, Urine Cannabis Screen Cancelled 02/11/18 1723: Urine Opiates Screen < 100, Methadone Screen < 40, Barbiturate Screen < 60, Ur Phencyclidine Scrn < 6.00, Amphetamines Screen 1401 H, U Benzodiazepines Scrn < 85, Urine Cocaine Screen < 50, Urine Cannabis Screen 69.90 H, Urinalysis MOD H , Urine Color YEL, Urine Clarity HAZY H, Urine pH 6.0, Ur Specific [place] >= 1.030, Urine Protein NEG, Urine Ketones NEG, Urine Nitrite NEG, Urine Bilirubin NEG, Urine Urobilinogen 0.2, Ur Leukocyte Esterase NEG, Ur Microscopic SEDIMENT EXAMINED, Urine WBC 1-3 H, Ur Epithelial Cells FEW, Urine Crystals RARE CA OX, Urine Bacteria MANY H, Urine Hemoglobin NEG, Urine Glucose NEG 02/11/18 1711: Anion Gap 11, Estimated GFR > 60, BUN/Creatinine Ratio 22.5, Glucose 100 H, Calcium 9.6, Magnesium 1.8, Total Bilirubin 0.6, AST 24, ALT 21, Alkaline Phosphatase 84, Troponin I 1.05 *H, Qoz-I-Huurjmrapaf Pept 882 H, Total Protein 7.2, Albumin 4.1, Globulin 3.1, Albumin/Globulin Ratio 1.3, TSH &T3 &Free T4 Intrp 1.480, PT 12.1, INR 1.11, APTT 29, D-Dimer High Sensitivty < 200, CBC w Diff NO MAN DIFF REQ, RBC 5.42 H, MCV 90.2, MCH 29.5, MCHC 32.7 L, RDW 14.7 H , MPV 9.2, Gran % 66.6, Lymphocytes % 26.1, Monocytes % 5.7, Eosinophils % 1.2, Basophils % 0.4, Absolute Granulocytes 8.7 H, Absolute Lymphocytes 3.4, Absolute Monocytes 0.7 H, Absolute Eosinophils 0.2, Absolute Basophils 0 Microbiology 02/11 2043 UPPER RESP: Surveillance Culture - ORD 02/11 2043 GI: Surveillance Culture - ORD Diagnostic Data EKG Results NORMAL SINUS RYTHM, T WAVE INVERSION IN V1,V2, ST DEPRESSION IN V3 CXR Results IMPRESSION: No acute pulmonary findings. Assessment/Plan Assessment: Patient is 57-year-old woman with past medical history significant for multiple sclerosis diagnosed 2 years ago currently on disease modifying agent( she doesn't remember the name, allergic to rituximab), thrombophlebitis, bipolar disorder and hypertension came in with chief complaint of episode of severe chest pressure associated with pounding and fluttering sensations of heart, left arm numbness and diaphoresis last night. On initial blood work she was noted to have elevated troponin to 1.05 and acute EKG changes in anterior/septal leads and was diagnosed with and NSTEMI. We will admit patient in ICU and will take care for the following problems Problem list 1. Elevated troponins most likely non-ST elevation PR 2. History of hypertension 3. History of MS currently in remission 4. History of bipolar disorder 5. Current smoker 6. History of thrombophlebitis Plan 1. ICU admission for closer monitoring and in case of further elevated troponin or acute changes might need to transfer for urgent cardiac cath otherwise most likely she would have cardiac catheterization in a.m. 2. Cardiology was informed and most likely will see patient in a.m. until urgent 3. Echocardiogram for any wall motion abnormalities 4. Patient was started on heparin drip. 5. Patient was given loading dose of Plavix and aspirin and we will continue. 6. We'll start her on statins 7. We will continue her home dose of beta blockers 8. Serial EKGs and troponins to peak 9. Nitropaste 0.5 inch every 6 hours 10. Nothing by mouth after 12 midnight 11. Patient is on high-dose vitamin D at home we will give her today's dose 50, 000 unit once 12. We will keep her pain-free with when necessary IV morphine 13. Supplemental oxygen to keep oxygen saturation more than 90% if needed 14. We will check lipid profile and hemoglobin A1c 15. She was guaiac negative in ER. Patient is full code Pharmacological DVT prophylaxis Nothing by mouth from 12 midnight. As Ranked By This Provider Problem List: 1. NSTEMI (non-ST elevated myocardial infarction) Core Measures/Misc (06/29) Acute Coronary Syndrome ACS Diagnosis: Yes Congestive Heart Failure Congestive Heart Failure Diagnosis No Cerebrovascular Accident CVA/TIA Diagnosis: No VTE (View Protocol) VTE Risk Factors Age>40 No Mechanical VTE Prophylaxis d/t N/A MechProphylax Ordered No VTE Pharm Prophylaxis d/t NA PharmProphylax ordered Sepsis (View protocol) Sepsis Present: No Resident Review Statement Resident Statement: examined this patient Nahum REICH, [facility] 02/11/18 2213: Attending MD Review Statement Attending Statement Attending MD Statement: examined this patient, discuss w/resident/PA/PIGMENT GRINDER, agreed w/resident/PA/PIGMENT GRINDER, reviewed images, amended to note Attending Assessment/Plan: 57 yo F smoker, with h/o childhood asthma, HTN, anxiety, multiple sclerosis currently on ocrelizumab infusions, previously failed rituxan infusions, followed by Dr. Gusman, is here for evaluation of chest pain and palpitations. Patient has been having intermittent palpitations for over 2 months. She went to a walk-in 1 month ago, where EKG done was normal. She attributed it to anxiety. Last night, she felt her heart racing with severe substernal chest heaviness, followed by left arm numbness, difficulty breathing, sweating and subsequently she had one episode of emesis. She states, "I felt my heart grow in size, it was pounding". She fell asleep soon after this. Today all day she stayed home as she was fatigued and eventually came to the ER. She works at a [employer] center and has a very stressful job. Her partner is an alcoholic. She usually does not do drugs, but tried marijuana 2 weeks ago to help with anxiety. She has noted exertional dyspnea over the past few weeks along with palpitations. She has no previous cardiac history and has never seen a fun house operator. Her maternal uncle had PR with stent placement at age 60. Vitals: afebrile, HR 70-100's, BP 122/58, sats 96% RA. Exam: AAO, MMM, PERRL, Neck supple, Chest b/l clear, Heart S1S2 regular, Abd soft, NT, LE: trace edema. Rectal exam: guaiac negative. Labs: WBC 13.1, H/H 16/48.8, Plt 243, D-dimer <200, BUN 18, glucose 100, troponin 1.05, porBNP 882. TSH normal. UA hazy, WBC 1-3, many bacteria. Utox positive for amphetamines and cannabis. CXR: no acute findings. EKG: sinus rhythm, nonspecific Twave changes, Qtc 464. Assessment and plan: 1. SSCP with elevated troponin, no acute EKG changes s/o NSTEMI 2. Essential hypertension 3. History of multiple sclerosis on Ocrelizumab 4. History of thrombophlebitis 5. Leukocytosis likely reactive, no UTI or pneumonia 6. Substance abuse utox positive for amphetamine and cannabis 7. Smoker - Admit to ICU - Vitals Q1 hour - IV heparin per PTT protocol - Aspirin, loading dose of plavix then 75 daily - Nitropaste 1/2 inch Q6 - O2 supplementation - IV morphine as needed for pain - Continue propranolol for now, discuss with cardiology about switching to metoprolol or carvedilol - Add high dose statin - Serial EKG and troponin - Obtain echocardiogram - Cardio consult (Dr. Rodrigues) - Check lipid panel, HbA1c. - NPO after midnight for possible cardiac cath in AM - Smoking cessation counseling - patient has previously quit with Chantex, outpatient follow with PCP to work on smoking cessation and therapies. DVT ppx IV heparin. Full code. TTS > 55 mins
[2018-02-11] MEDS ORDERED: INDERAL LA60 M1 PO (20:48)
[2018-02-11] MEDS ORDERED: ASPIRIN81 M4 PO (20:53)
[2018-02-11 22:00] VITALS: BP 122/58
--- NOTE | 2018-02-11 22:14 | Admission Certification ---
Admission Certification Certification Statement - As attending physician, I certify that at the time of - admission, based on clinical presentation, severity of - symptoms, need for further diagnostic testing and - therapeutic interventions, and risk of adverse outcomes - without in-hospital treatment, in my clinical assessment, - this patient requires an acute hospital stay for a minimum - of two nights or longer. I have also considered psychsocial - factors such as support system, advanced age, financial - issues, cognitive issues, and failed out-patient treatments, - past re-admission history, safety of patient, and lack of - compliance as applicable. Specific rationale supporting this admission is: NSTEMI requiring ICU level of care.
[2018-02-12 01:29] LABS: PTT 63 SEC (25-37)
--- NOTE | 2018-02-12 07:04 | PN- Resident CRCU ---
Olivia Turner 02/12/18 0704: Subjective HPI/CRCU Issues: NSTEMI History of MS She was comfortable this point. Did not have any chest pain. Vitals were stable overnight. Stated that she feels overall the same compared to yesterday night. MAXIMUM TEMPERATURE 98.6 eart rate 62-70 normal sinus rhythm, respiration 18-23 Blood-pressure range 105-163/59-84, She was on 1.5 L supplemental oxygen with oxygen saturation of 98%. Currently on RA. Ins and Outs: 24 hours-1400 mL, output 350 mL. Objective Vital Signs & I&O Last 8 Hrs of Vitals and I&O: Vital Signs Date Time Temp Pulse Resp B/P B/P Pulse O2 O2 Flow FiO2 Mean Ox Delivery Rate 02/12 0813 72 112/72 02/12 0012 96 Nasal 1.5L Cannula 02/11 2200 98.3 66 20 122/58 96 Room Air 02/11 2200 96 Room Air 02/11 2059 97.8 70 18 153/86 97 Room Air 02/11 1858 98.4 75 18 142/84 98 Room Air 02/11 1647 98.6 106 18 152/92 98 Room Air Intake & Output 02/12 1600 02/12 0800 05 0000 Intake Total 760 600 Output Total 350 0 Balance 410 600 Intake, IV 760 Intake, Oral 600 Number 0 Bowel Movements Output, Urine 350 0 Patient 185 lb Weight Weight Reported by Patient Measurement Method Exam General Appearance: alert Other Physical Findings: General Exam: AAOx3, No acute distress, Skin: No rashes, no breakdown; HEENT: PERRLA, EOMI;Neck: Supple, No JVD; No cervical lymphadenopathy;CVS: Reg Rate, Normal S1,S2, No MGR;Resp: Normal air entry, no ronchi/rales;Abdomen: Soft, No tenderness, Normal Bowel Sounds;Neuro: Normal Speech, Strength 5/5 b/l x 4 extremities, Sensation intact, CN III-XII NL, Reflexes 2+;Extremities: No cyanosis, trace pedal edema Current Medications: Current Medications Sig/Jair Start time Last Medication Dose Route Stop Time Status Admin Aspirin 81 MG DAILY 02/12 0900 AC 02/12 PO 0813 Aspirin 0 .STK-MED ONE 02/11 1810 DC PO Aspirin 325 MG ONCE ONE 05/02 1800 DC 05/ PO 05/ 1801 1806 Atorvastatin Calcium 40 MG 1700 05/ 1700 AC PO Clopidogrel Bisulfate 75 MG DAILY 02/12 0900 AC 05/03 PO 0813 Clopidogrel Bisulfate 300 MG ONCE ONE 02/11 1830 DC 05/ PO 05/ 1831 1831 Ergocalciferol 50,000 IU ONCE ONE / 2200 DC 05/ PO 05/ 2201 2222 Heparin Sodium 0 .STK-MED ONE 02/11 1829 DC (Porcine) .ROUTE Heparin Sodium 4,000 UNIT ONCE ONE 02/11 1815 DC 02/11 (Porcine) IV / 181 1831 Heparin Sodium 25,000 UNIT Q24H 02/11 1815 AC 05/ (Porcine) IV 183 Sodium Chloride 500 ML Morphine Sulfate 2 MG Q4P PRN 02/11 2000 AC IV Nitroglycerin 0.5 GM Q6 02/11 2200 AC / TOP 1310 Potassium Chloride 10 MEQ ONCE ONE 02/11 2200 DC 02/11 PO 02/11 2201 2222 Propranolol HCl 60 MG DAILY 02/12 0900 AC 02/12 PO 0813 Propranolol HCl 60 MG ONCE ONE 02/11 1745 CAN PO / 1746 Propranolol HCl 40 MG ONCE ONE 02/11 1745 DC / PO 05 1746 1805 Sodium Chloride 1,000 ML ONCE ONE 02/12 0015 DC 05 IV 05 1334 0029 Impression/Plan Impression/Problem List Impression: Ms Mixon is a 57 year old woman w/ a PMHx of asthma, smoker ([id number]) multiple sclerosis (dx'ed app3 yrs ago, currently on Ocrelizumab, and follows up with Dr. Gusman), superficial thrombophlebitis, anxiety, hypertension came to the hospital with a chief concern of substernal chest pain that started on the night prior of presentation to [facility], likely secondary to NSTEMI. She was known to be in her usual state of health until a few months ago. She reported occasional palpitations at rest, not associated with any stimulant intake, or exertion. Has been evaluated at an urgent care facility, and was not found to be in arrhythmias. She also reported exertional dyspnea in the last few months. 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 On the night prior of presentation to the hospital ( 24 hrs ago), she had substernal chest heaviness after she ate her dinner, radiating to left arm, lasted for approximately an hour, associated with dyspnea, sweating and vomiting. She did not take any medication, and slept during the night and most the next day. The discomfort was relieved after she got nitroglycerin in the ED. No cough, fever, dysuria, abdominal pain reported. No family history of coronary artery disease in father or mother. Reported having worsning symptoms of MS, and is unsure if she had any previous similar episodes. At the time of admission-temperature 98.6, pulse rate 106, respiration 18, blood pressure 142/92, pulse ox 98% on room air. She was admitted to [facility] intensive care unit, since she had elevated troponin up to 1.05. She remained asymptomatic while she was in the ICU. Pertinent lab findings- WBC 13.1 (likely reactive) Hemoglobin 16.0 Platelets 243 Sodium 145, potassium 3.9, magnesium 1.8 Bicarbonate 28 Renal function: BUN 18, creatinine 0.8 Liver chemistries: AST 24, ALT 21, alkaline phosphatase 84 Troponin I 1.05-->0.73-->0.55 ProBNP 82 Hemoglobin A1c pending INR 1.11. Lipid panel: Triglycerides 97, cholesterol 148, LDL 86, TSH 1.48 Chest x-ray did not show any acute pulmonary findings. EKG revealed nonspecific T-wave changes in V1-V2. No ST-T wave changes noted. Normal sinus rhythm, normal axis. No LVH. U tox positive for amphetamines, and cannabis. Cocaine negative. Etiology in this case is likely NSTEMI with symptoms of unstable angina + elevated cardiac enzymes with positive cardiac risk factors smoking, age > 35, HTN, chronic inflammatory state. Other etiologies such as anxiety, arrythmias, aortic dissection, GERD, MVP, myocarditis, coronary artery spasm are to considered as differentials. Patients with unstable angina requiring admission to inpatient hospital, and considering her intermedite to high risk, she would need a cardiac catheterization. Respiratory: Stable at this time. Oxygen supplemental as needed. Infectious: Currently has slight elevation in white count, which should be trended. No signs of systemic infection at this time. If she has any fever, white count, we could pancultured. Circulatory: NSTEMI. Given her risk factors, she would need cardiac catheterization. -admit to telemetry for cardiac monitoring of any arrythmias -She was given Plavix 300 mg stat and daily aspirin, plavix and Atorvastatin 80mg daily. -serial electrocardiograms, cardiac enzymes ruled out for acute ND. -for the management of angina- SL nitroglycerin q5 min x 3, than can use iv nitro and iv morphine for pain control(hold for low BP) -She was on propranol which was continued as per cardiology. -IV heparin, given high GENARO score. -discuss early intervention with cardiac catheterization, if pt develops uncontrolled angina, dynamic EKG changes. Hematology: Need to rule out DVT, given her h/o smoking. D-dimer is low, and low wells score, PE should be considered in differential. -Check US dopplers lower extremities. -If US negative, consider CTA if cath is negative, as per Dr. Zepeda. Metabolic- Currently stable. Monitor renal function closely. - It should be kept in mind, that she is in to get a cardiac cath in the next 24 hours and be mindful of contrast load. Alimentary-nothing by mouth at this time. If the patient is not being transferred, for a cardiac cath, would advance her diet today. DVT prophylaxis: intravenous heparin Diet NPO ICU checklist: #1 Central line- none #2 Arterial line - none #3 Bundy catheter- none #4 Rectal tube- none #5 NG tube- none #6 IV/peripheral line- 02/11/18 #7 IV drips- iv heparin. #8 Vent settings- none #9 pressors-none. Problem List: 1. NSTEMI (non-ST elevated myocardial infarction) Pain Ratin Tomorrow's Labs & Rationales: cbc bep Plan DVT/Prophylaxis: pharmacological Duane REICH,[facility] 02/12/18 0959: Attending MD Review Statement Attending Sign Off Attending Cosign Statement: I have: examined this patient, reviewed [facility] EMR data, personally reviewd images, discussd w/resident/PA/CONCRETE BLOCK PLANT SUPERVISOR, discussed mgmt plan w/kaylee, discussed mgmt plan w/CM, discussed mgmt plan w/pt, agreed w/resident/PA/CONCRETE BLOCK PLANT SUPERVISOR, amended to note. Other Findings: Pt with multiple issues including history of ?MS seen in MS clinic here, previous history of thrombophebitis per pt, history of Dex/amphetamine, obesity, marijuana use, cigarette smoking now with Palpitaions, chest discomfort, leg discomfort with elevated troponin with nonspecific ekg changes, rule out ACS vs other causes including vte Not tachy or hypoxic, no leg edema (low gestalt for vte, low d- dimer, but needs to rule out if angio is neg) MS on rx On Dex/amphetamine for hypersomnia rule out pacheco Mild elevated hct Smoking cigarette and marijuana Plan Cont all meds Cardio to see Lower ext doppler Cath If neg Cta Smoking cessation counselling Out pt eval to rule out PACHECO Tts 36 mins Pt is critically ill in icu
[2018-02-12 08:00] VITALS: BP 140/80
[2018-02-12] MEDS ORDERED: DEXTROAMP-AMPHE10 MG PO (08:19)
--- NOTE | 2018-02-12 09:15 | Cons- Cardiology ---
General Information and HPI Consulting Request Date of Consult: 02/12/18 Requested By: Duane REICH,Jaguar Aburto Reason for Consult: acs History of Present Illness: 57-year-old woman with past medical history significant for multiple sclerosis diagnosed 2 years ago currently on disease modifying agent(she doesn't remember the name, allergic to rituximab), thrombophlebitis, bipolar disorder and hypertension came in with chief complaint of episode of severe chest pressure associated with pounding and fluttering sensations of heart, left arm numbness and diaphoresis last night. During this episode she was very short of breath and stayed in this condition for about 1-2 hours without any significant relief. Afterwards she slept all night. She came to the ED from work this morning , because she was worried about yesterday's episode and came to ED positive troponins trending down (max 1.05) with non specific EKG changes. Allergies/Medications Allergies: Coded Allergies: Penicillins (Severe, UNKNOWN PER PT 01/10/16) Home Med List: Aspirin (Aspirin*) 81 MG TAB.CHEW 1 TAB PO DAILY HEART HEALTH (Reported) Atorvastatin Calcium 40 MG TABLET 40 MG PO 1700 hlp Cephalexin (Keflex) 500 MG CAPSULE 1 CAP PO Q6H CELLULITIS Clopidogrel Bisulfate (Plavix) 75 MG TABLET 75 MG PO DAILY CAD Cyanocobalamin (Vitamin B-12) (Cyanocobalamin Injection) 1,000 MCG/ML VIAL 1 ML IM QSUN VITAMIN SUPPORT (Reported) Dextroamphetamine/Amphetamine (Dextroamp-Amphetamin 10 MG Tab) 10 MG TABLET 1 TAB PO BID ADHD (Reported) Ergocalciferol (Vitamin D2) (Vitamin D2) 50,000 UNIT CAPSULE 1 CAP PO Q FRI AND FRIDAY VITAMIN SUPPORT (Reported) Heparin Sodium,Porcine/D5w (Heparin-D5w 25,000 Unit/250 Ml) 25,000 UNIT/250 ML ( 100 UNIT/ML) IV.SOLN 1 U IV D ACS, NSTEMI Nitroglycerin (Nitro-Bid) 2 % OINT...G. 0.5 GM TOP Q6 CHEST PAIN Propranolol LA (Inderal LA) 60 MG CAP.SA.24H 1 CAP PO DAILY HIGH BLOOD PRESSURE (Reported) Current Medications: Current Medications Sig/Jair Start time Last Medication Dose Route Stop Time Status Admin Aspirin 81 MG DAILY 02/12 0900 AC 02/12 PO 0813 Aspirin 0 .STK-MED ONE 02/11 1810 DC PO Aspirin 325 MG ONCE ONE 02/11 1800 DC 05/ PO 05 1801 1806 Atorvastatin Calcium 40 MG 1700 / 1700 AC PO Clopidogrel Bisulfate 75 MG DAILY 02/12 0900 AC 05 PO 0813 Clopidogrel Bisulfate 300 MG ONCE ONE 02/11 1830 DC / PO 05 1831 1831 Ergocalciferol 50,000 IU ONCE ONE 02/11 2200 DC 02/11 PO 02/11 2201 2222 Heparin Sodium 0 .STK-MED ONE 02/11 1829 DC (Porcine) .ROUTE Heparin Sodium 4,000 UNIT ONCE ONE 02/11 1815 DC 02/11 (Porcine) IV 02/11 181 1831 Heparin Sodium 25,000 UNIT Q24H 02/11 1815 AC 02/11 (Porcine) IV 1831 Sodium Chloride 500 ML Morphine Sulfate 2 MG Q4P PRN 02/11 2000 AC IV Nitroglycerin 0.5 GM Q6 02/11 2200 AC 02/12 TOP 0543 Potassium Chloride 10 MEQ ONCE ONE 02/11 2200 DC 02/11 PO 02/11 2201 2222 Propranolol HCl 60 MG DAILY 02/12 0900 AC 02/12 PO 0813 Propranolol HCl 60 MG ONCE ONE 02/11 1745 CAN PO 02/11 1746 Propranolol HCl 40 MG ONCE ONE 02/11 1745 DC 02/11 PO 02/11 1746 1805 Sodium Chloride 1,000 ML ONCE ONE 02/12 0015 AC 02/12 IV 05 1334 0029 Past History Travel History Traveled to [place] past 21 day No Medical History Blood Transfusion Hx: No Neurological: multiple sclerosis, TRIGEMINAL NEURALGIA EENT: NONE Cardiovascular: hypertension Respiratory: NONE Gastrointestinal: NONE Hepatic: NONE Renal: NONE Musculoskeletal: THROMBOPHLEBITIS Psychiatric: NONE Endocrine: NONE Blood Disorders: NONE Cancer(s): 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 MOTHER (UTERINE CANCER). Psychosocial History Where Do You Live? Home Smoking Status: Current Everyday Smoker ETOH Use: denies use Functional Ability ADLs Independent: dressing, eating, toileting, bathing. Ambulation: independent IADLs Independent: shopping, housework, finances, food prep, telephone, transportation , medication admin. Exam & Diagnostic Data Vital Signs and I&O Vital Signs Date Time Temp Pulse Resp B/P B/P Pulse O2 O2 Flow FiO2 Mean Ox Delivery Rate 02/12 813 72 112/72 02/12 0012 96 Nasal 1.5L Cannula 02/11 2200 98.3 66 20 122/58 96 Room Air 02/11 2200 96 Room Air 02/11 2059 97.8 70 18 153/86 97 Room Air 02/11 1858 98.4 75 18 142/84 98 Room Air 02/11 1647 98.6 106 18 152/92 98 Room Air Intake & Output 02/12 1600 02/12 0802/12 0000 02/11 1600 02/11 0000 Intake Total 760 600 Output Total 350 0 Balance 410 600 Intake, IV 760 Intake, Oral 600 Number 0 Bowel Movements Output, Urine 350 0 Patient 185 lb Weight Weight Reported by Patient Measurement Method Physical Exam General Appearance: no apparent distress, alert, comfortable Head: atraumatic Neck: supple, full range of motion, trachea mid line Respiratory: normal breath sounds, no respiratory distress, lungs clear Cardiovascular: regular rate/rhythm (Absence of murmur) Gastrointestinal: normal bowel sounds, soft, no organomegaly Extremities: normal capillary refill, no edema Labs/Jason Results: Laboratory Tests 02/12 02/12 02/12 02/11 08 0550 0040 2236 Chemistry Hemoglobin A1c (4.2 - 5.8 %) 5.5 Troponin I (< 0.11 ng/ml) 0.55 *H 0.73 *H Triglycerides (<150 mg/dL) 97 Cholesterol (<200 MG/DL) 148 LDL Cholesterol, Calc (65 - 129 mg/dL) 86 HDL Cholesterol (40 - 60 mg/dL) 43 Cholesterol/HDL Ratio (0.00 - 4.23 %) 3 Coagulation APTT (25 - 37 SEC) Cancelled 63 H 02/11 02/11 2046 1723 Toxicology Urine Opiates Screen (>2000 NG/ML) < 100 Methadone Screen (>300 NG/ML) Cancelled < 40 Barbiturate Screen (>200 NG/ML) Cancelled < 60 Ur Phencyclidine Scrn (>25 NG/ML) Cancelled < 6.00 Amphetamines Screen (>1000 NG/ML) Cancelled 1401 H U Benzodiazepines Scrn (>200 NG/ML) Cancelled < 85 Urine Cocaine Screen (>300 NG/ML) Cancelled < 50 Urine Cannabis Screen (>50 NG/ML) Cancelled 69.90 H Urines Urinalysis MOD H Urine Color (YEL,AMB,STR) YEL Urine Clarity (CLEAR) HAZY H Urine pH (5.0 - 8.0) 6.0 Ur Specific [place] (1.001 - 1.035) >= 1.030 Urine Protein (NEG,<30 MG/DL) NEG Urine Ketones (NEG) NEG Urine Nitrite (NEG) NEG Urine Bilirubin (NEG) NEG Urine Urobilinogen (0.1 - 1.0 EU/dl) 0.2 Ur Leukocyte Esterase (NEG) NEG Ur Microscopic SEDIMENT EXAMINED Urine WBC (0 - 2 /HPF) 1-3 H Ur Epithelial Cells (NONE,FEW) FEW Urine Crystals RARE CA OX Urine Bacteria (NEG/NONE) MANY H Urine Hemoglobin (NEG) NEG Urine Glucose (N MG/DL) NEG 02/11 1711 Chemistry Sodium (137 - 145 mmol/L) 145 Potassium (3.5 - 5.1 mmol/L) 3.9 Chloride (98 - 107 mmol/L) 106 Carbon Dioxide (22 - 30 mmol/L) 28 Anion Gap (5 - 16) 11 BUN (7 - 17 mg/dL) 18 H Creatinine (0.5 - 1.0 mg/dL) 0.8 Estimated GFR (>60 ml/min) > 60 BUN/Creatinine Ratio (7 - 25 %) 22.5 Glucose (65 - 99 mg/dL) 100 H Calcium (8.4 - 10.2 mg/dL) 9.6 Magnesium (1.6 - 2.3 mg/dL) 1.8 Total Bilirubin (0.2 - 1.3 mg/dL) 0.6 AST (14 - 36 U/L) 24 ALT (9 - 52 U/L) 21 Alkaline Phosphatase (<127 U/L) 84 Troponin I (< 0.11 ng/ml) 1.05 *H [id number] Pept (<125 pg/mL) 882 H Total Protein (6.3 - 8.2 g/dL) 7.2 Albumin (3.5 - 5.0 g/dL) 4.1 Globulin (1.9 - 4.2 gm/dL) 3.1 Albumin/Globulin Ratio (1.1 - 2.2 %) 1.3 TSH &T3 &Free T4 Intrp (0.270 - 4.20 uIU/mL) 1.480 Coagulation PT (9.4 - 12.5 SEC) 12.1 INR (0.90 - 1.19) 1.11 APTT (25 - 37 SEC) 29 D-Dimer High Sensitivty (0 - 243 ng/ml) < 200 Hematology CBC w Diff NO MAN DIFF REQ WBC (4.8 - 10.8 /CUMM) 13.1 H RBC (4.20 - 5.40 /CUMM) 5.42 H Hgb (12.0 - 16.0 G/DL) 16.0 Hct (37 - 47 %) 48.8 H MCV (81.0 - 99.0 FL) 90.2 MCH (27.0 - 31.0 PG) 29.5 MCHC (33.0 - 37.0 G/DL) 32.7 L RDW (11.5 - 14.5 %) 14.7 H Plt Count (130 - 400 /CUMM) 243 MPV (7.4 - 10.4 FL) 9.2 Gran % (42.2 - 75.2 %) 66.6 Lymphocytes % (20.5 - 51.1 %) 26.1 Monocytes % (1.7 - 9.3 %) 5.7 Eosinophils % (0 - 5 %) 1.2 Basophils % (0.0 - 2.0 %) 0.4 Absolute Granulocytes (1.4 - 6.5 /CUMM) 8.7 H Absolute Lymphocytes (1.2 - 3.4 /CUMM) 3.4 Absolute Monocytes (0.10 - 0.60 /CUMM) 0.7 H Absolute Eosinophils (0.0 - 0.7 /CUMM) 0.2 Absolute Basophils (0.0 - 0.2 /CUMM) 0 Assessment/Plan Assessment/Plan NSTEMI in young patient with MS presently in remission, bipolar disorder. Plavix loading , ASA loading and heparin started in ED. PCI will be done tomorrow at [facility] by Dr Phelps. keep in ICU until transfer. Consult Acknowledgment - Thank you for your consult request.
[2018-02-12] MEDS ORDERED: PLAVIX75 M1 PO (09:44)
[2018-02-12] MEDS ORDERED: NITRO-BID1 GM TOP (09:44)
[2018-02-12] MEDS ORDERED: ATORVASTATIN CA40 M1 PO (09:44)
[2018-02-12] MEDS ORDERED: HEPARIN-D525000 UNIT IV (09:49)
--- NOTE | 2018-02-12 09:52 | Patient Discharge Instructions ---
Discharge Instructions General Discharge Information You were seen/treated for: NSTEMI You had these procedures: NONE Watch for these problems: CHEST PAIN SOB DIAPHORESIS PALPITATIONS Special Instructions: Follow Up with PCP in one week after discharge Follow-up with infertility medical assistant in 1 week after discharge Diet Continue normal diet: Yes Recommended Diet: Heart Healthy Activity Full Activity/No Limits: Yes Acute Coronary Syndrome Inclusion Criteria At DC or during hospital stay patient has or had the following: ACS DIAGNOSIS Yes Discharge Core Measures Meds if any: Prescribed or Continued at Discharge Aspirin Yes Beta-Joslyn Yes Statin Yes Meds if any: NOT Prescribed or Continued at Discharge Congestive Heart Failure Inclusion Criteria At DC or during hospital stay patient has or had the following: CHF DIAGNOSIS No Discharge Core Measures Meds if any: Prescribed or Continued at Discharge Meds if any: NOT Prescribed or Continued at Discharge Cerebrovascular accident Inclusion Criteria At DC or during hospital stay patient has or had the following: CVA/TIA Diagnosis No Discharge Core Measures Meds if any: Prescribed or Continued at Discharge Meds if any: NOT Prescribed or Continued at Discharge Venous thromboembolism Inclusion Criteria VTE Diagnosis No VTE Type NONE VTE Confirmed by (Test) NONE Discharge Core Measures - Per Current guidelines, there needs to be overlap - treatment for the first 5 days of Warfarin therapy. - If discharged on Warfarin prior to 5 days of - overlap therapy, the patient will need to be - assessed for post discharge needs including - *Post discharge parental anticoagulation - *Warfarin and/or parental anticoagulation education - *Follow up date to check INR post discharge At least 5 days overlap therapy as Inpatient Yes Meds if any: Prescribed or Continued at Discharge Note: Overlap Therapy is Warfarin and Anticoagulant Meds if any: NOT Prescribed or Continued at Discharge
--- NOTE | 2018-02-12 10:59 | Discharge Summary ---
Visit Information Visit Dates Admission Date: 02/11/18 Discharge Date: 02/13/2018 Hospital Course Course Attending Physician: Duane REICH,Jaguar Aburto Primary Care Physician: Diana Hebert DO Other Care Providers: DR NORTH Consulting Request: Consulting Specialty: Cardiology Hospital Course: Ms Mixon is a 57 year old woman w/ a PMHx of asthma, smoker ([id number]) multiple sclerosis (dx'ed app3 yrs ago, currently on Ocrelizumab, and follows up with Dr. Gusman), superficial thrombophlebitis, anxiety, hypertension came to the hospital with a chief concern of substernal chest pain that started on the night prior of presentation to [facility], likely secondary to NSTEMI. She was known to be in her usual state of health until a few months ago. She reported occasional palpitations at rest, not associated with any stimulant intake, or exertion. Has been evaluated at an urgent care facility, and was not found to be in arrhythmias. She also reported exertional dyspnea in the last few months. 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 On the night prior of presentation to the hospital ( 24 hrs ago), she had substernal chest heaviness after she ate her dinner, radiating to left arm, lasted for approximately an hour, associated with dyspnea, sweating and vomiting. She did not take any medication, and slept during the night and most the next day. The discomfort was relieved after she got nitroglycerin in the ED. No cough, fever, dysuria, abdominal pain reported. No family history of coronary artery disease in father or mother. Reported having worsning symptoms of MS, and is unsure if she had any previous similar episodes. At the time of admission-temperature 98.6, pulse rate 106, respiration 18, blood pressure 142/92, pulse ox 98% on room air. She was admitted to [facility] intensive care unit, since she had elevated troponin up to 1.05. She remained asymptomatic while she was in the ICU. Pertinent lab findings- WBC 13.1 (likely reactive) Hemoglobin 16.0 Platelets 243 Sodium 145, potassium 3.9, magnesium 1.8,Bicarbonate 28 Renal function:BUN 18, creatinine 0.8 Liver chemistries:AST 24, ALT 21, alkaline phosphatase 84 Troponin I 1.05-->0.73-->0.55 ProBNP 882 Hemoglobin A1c pending INR 1.11. Lipid panel: Triglycerides 97, cholesterol 148, LDL 86, TSH 1.48 Chest x-ray did not show any acute pulmonary findings. EKG revealed nonspecific T-wave changes in V1-V2. No ST-T wave changes noted. Normal sinus rhythm, normal axis. No LVH. U tox positive for amphetamines, and cannabis. Cocaine negative. NSTEMI Patient presented with severe chest pressure associated with pounding and fluttering sensations of heart, left arm numbness and diaphoresis. She was found to have elevated troponin with no EKG changes. Etiology in this case is likely NSTEMI with symptoms of unstable angina +elevated cardiac enzymes with positive cardiac risk factors smoking, age > 35, HTN, chronic inflammatory state. Other etiologies such as anxiety, arrythmias, aortic dissection, GERD, MVP, myocarditis, coronary artery spasm are to considered as differentials. Patients with unstable angina requiring admission to inpatient hospital, and considering her intermedite to high risk, she would need a cardiac catheterization. She was given aspirin 325, loading dose of Plavix, heparin bolus at the time of admission. She was continued on aspirin 81, Plavix 75, atorvastatin 40, heparin drip, nitroglycerin paste every 6 hours, morphine as needed for pain. Trended troponin and EKG. Transportation Engineer on board, recommended to transfer for cardiac cath. Echocardiogram showed Normal left ventricular size, wall thickness and systolic function with no obvious regional wall motion abnormalities. Normal left ventricular diastolic filling pattern for age. History of thrombophlebitis Given history of thrombophlebitis and lower extremity pain/discomfort, bilateral lower extremity Doppler ultrasound was done to rule out deep vein thrombosis. She denied any tachycardia, hypoxia, no lower extremity edema, low d-dimer. US showed no evidence of DVT. Please consider CTA if cath is negative. Hypertension continued on propranolol home medication History of multiple sclerosis on Ocrelizumab Leukocytosis likely reactive, no UTI or pneumonia Substance abuse utox positive for amphetamine and cannabis Smoker- Smoking cessation counselled - patient has previously quit with Chantex, outpatient follow with PCP to work on smoking cessation and therapies. DVT ppx IV heparin. Full code. NPO for possible cardiac cath in AM ICU checklist: #1 Central line- none #2 Arterial line - none #3 Bundy catheter- none #4 Rectal tube- none #5 NG tube- none #6 IV/peripheral line- 02/11/18 #7 IV drips- iv heparin. #8 Vent settings- none #9 pressors-none. Complications: NONE Allergies: Coded Allergies: Penicillins (Severe, UNKNOWN PER PT 01/10/16) Significant Procedures: NONE Pertinent Lab Results: CXR FINDINGS: Cardiac leads overlie the chest. The lungs are well expanded. There is no focal consolidation, edema, or effusion. No pneumothorax. The cardiomediastinal silhouette is within normal limits. No acute osseous abnormality. IMPRESSION: No acute pulmonary findings. FINDINGS Left Ventricle Normal left ventricular size, wall thickness and systolic function with no obvious regional wall motion abnormalities. Normal left ventricular diastolic filling pattern for age. The ejection fraction is visually estimated at 60 %. Right Ventricle The right ventricle is normal in size and function. Right Atrium The right atrium is normal in size. Left Atrium The left atrium is normal in size. The interatrial septum is intact. Mitral Valve The mitral valve is normal in structure and function. There is trace mitral regurgitation. Aortic Valve Structurally normal aortic valve without significant sclerosis or stenosis. There is no aortic regurgitation. Tricuspid Valve The tricuspid valve is normal in structure and function. There is trace tricuspid regurgitation. Pulmonary artery systolic pressure is normal. Pulmonic Valve Structurally normal pulmonic valve. There is no pulmonic regurgitation. Pericardium Normal pericardium without effusion. No pleural effusion. Great Vessels Normal aortic root dimension. The aortic arch and great vessels are well seen and are normal. CONCLUSIONS Normal left ventricular size, wall thickness and systolic function with no obvious regional wall motion abnormalities. Normal left ventricular diastolic filling pattern for age. The ejection fraction is visually estimated at 60 %. The right ventricle is normal in size and function. The left atrium is normal in size. The interatrial septum is intact. The mitral valve is normal in structure and function. There is trace mitral regurgitation. Structurally normal aortic valve without significant sclerosis or stenosis. There is trace tricuspid regurgitation. Pulmonary artery systolic pressure is normal. Normal pericardium without effusion. Normal aortic root dimension. Yulia North M.D. (Electronically Signed) Final Date: 12 Feb 2018 22:18 MEASUREMENTS (Male / Female) Normal Values 2D ECHO LV Diastolic Diameter PLAX 4.0 cm 4.2 - 5.9 / 3.9 - 5.3 cm LV Systolic Diameter PLAX 2.4 cm 2.1 - 4.0 cm LV Fractional Shortening PLAX 40.0 % 25 - 46 % LV Ejection Fraction 2D Teich 71.2 % IVS Diastolic Thickness 1.1 cm LVPW Diastolic Thickness 1.1 cm LV Relative Wall Thickness 0.6 LVOT Diameter 1.7 cm Aortic Root Diameter 2.6 cm LA Systolic Diameter LX 3.1 cm 3.0 - 4.0 / 2.7 - 3.8 cm LA Volume 34.0 cm 18 - 58 / 22 - 52 cm Ascending Aorta Diameter 2.8 cm DOPPLER AV Peak Velocity 125.0 cm/s AV Peak Gradient 6.3 mmHg AV Mean Velocity 88.1 cm/s AV Mean Gradient 4.0 mmHg AV Velocity Time Integral 29.1 cm LVOT Peak Velocity 80.5 cm/s LVOT Peak Gradient 2.6 mmHg LVOT Mean Velocity 51.6 cm/s LVOT Mean Gradient 1.0 mmHg LVOT Velocity Time Integral 20.0 cm LVOT Stroke Volume 45.4 cm AV Area Cont Eq vti 1.6 cm AV Area Cont Eq pk 1.5 cm MV Peak Velocity 110.0 cm/s MV Peak Gradient 4.8 mmHg MV Mean Velocity 58.9 cm/s MV Mean Gradient 2.0 mmHg Mitral E Point Velocity 76.5 cm/s Mitral A Point Velocity 68.6 cm/s Mitral E to A Ratio 1.1 MV PHT Velocity 105.0 cm/s MV Deceleration Reeves 334.0 cm/s MV Pressure Half Time 94.3 ms MV Area PHT 2.3 cm MV Deceleration Time 306.0 ms PV Peak Velocity 74.4 cm/s PV Peak Gradient 2.2 mmHg PV Mean Velocity 55.5 cm/s PV Mean Gradient 1.0 mmHg PV Velocity Time Integral 19.4 cm LV E' Lateral Velocity 9.6 cm/s Mitral E to LV E' Lateral Ratio 8.0 LV E' Septal Velocity 7.8 cm/s Mitral E to LV E' Septal Ratio 9.8 ---- FINDINGS: Respiratory variation, normal compression and augmented flow are noted throughout the lower extremities. The visualized common femoral vein, superficial femoral vein, profunda femoral vein, popliteal vein and midcalf peroneal and posterior tibial venous segments show no evidence of deep venous thrombosis. There is no Cisse's cyst. IMPRESSION: Normal triplex scan without evidence of deep venous thrombosis involving the lower extremities. Disposition Summary Disposition Principal Diagnosis: NSTEMI Additional Diagnosis: LEUKOCYTOSIS Discharge Disposition: other general hospital Discharge Instructions General Discharge Information Code Status: Full Code Patient's Diet: As tolerated Patient's Activity: As tolerated Follow-Up Instructions/Appts: Follow-up with PCP in one week after discharge Follow-up with plug making operator in 1-2 days after discharge Medications at Discharge Discharge Medications: Continue taking these medications: Ergocalciferol (Vitamin D2) (Vitamin D2) 50,000 UNIT CAPSULE 1 Capsule ORAL Q FRI AND FRIDAY Comments: NOT GIVEN Cyanocobalamin (Vitamin B-12) (Cyanocobalamin Injection) 1,000 MCG/ML VIAL 1 Milliliters INTRAMUSC EVERY FRIDAY Comments: NOT GIVEN Propranolol LA (Inderal LA) 60 MG CAP.SA.24H 1 Capsule ORAL DAILY Qty = 90 Comments: Last Taken: 02/13/18 Time: 9 AM Aspirin (Aspirin*) 81 MG TAB.CHEW 1 Tablet ORAL DAILY Comments: Last Taken: 02/13/18 Time: 9AM Dextroamphetamine/Amphetamine (Dextroamp-Amphetamin 10 MG Tab) 10 MG TABLET 1 Tablet ORAL TWICE DAILY Qty = 60 Comments: NOT GIVEN Start taking the following new medications: Atorvastatin Calcium (Atorvastatin Calcium) 40 MG TABLET 40 Milligram ORAL 5 PM Qty = 30 No Refills Comments: Last Taken: 02/12/18 Time: 5:30 PM Clopidogrel Bisulfate (Plavix) 75 MG TABLET 75 Milligram ORAL DAILY Qty = 30 No Refills Comments: Last Taken: 02/13/18 Time: 9 AM Nitroglycerin (Nitro-Bid) 2 % OINT...G. 0.5 Gram On the skin EVERY SIX HOURS Qty = 1 No Refills Comments: Last Taken: 02/13/18 Time: 6 AM Heparin Sodium,Porcine/D5w (Heparin-D5w 25,000 Unit/250 Ml) 25,000 UNIT/250 ML ( 100 UNIT/ML) IV.SOLN 1 Units INTRAVEN Every Day Qty = 1 No Refills Comments: Last Taken: 02/13/18 Time: 9 AM Copies To: Diana Hebert DO, MD Review Statement Documenting Attending: Duane REICH,Jaguar Aburto Other Findings: seen and examined stable ok to go to [facility] for cath
--- NOTE | 2018-02-12 13:48 | ULTRASOUND REPORT ---
EXAMINATION: US TRIPLEX OF LOWER EXTREMITIES, BILATERAL CLINICAL INFORMATION: Lower extremity swelling and tenderness patent bilaterally. Rule out DVT. COMPARISON: None TECHNIQUE: Color-flow triplex imaging with spectral analysis and compression Doppler were performed on the lower extremities. FINDINGS: Respiratory variation, normal compression and augmented flow are noted throughout the lower extremities. The visualized common femoral vein, superficial femoral vein, profunda femoral vein, popliteal vein and midcalf peroneal and posterior tibial venous segments show no evidence of deep venous thrombosis. There is no Cisse's cyst. IMPRESSION: Normal triplex scan without evidence of deep venous thrombosis involving the lower extremities.
[2018-02-12 14:37] LABS: ABSOLUTE BASOPHIL COUNT 0 /CUMM (0.0-0.2); ABSOLUTE EOSINOPHIL COUNT 0.1 /CUMM (0.0-0.7); ABSOLUTE GRANULOCYTE CT 4.9 /CUMM (1.4-6.5); ABSOLUTE LYMPH COUNT 3.2 /CUMM (1.2-3.4); ABSOLUTE MONOCYTE COUNT 0.4 /CUMM (0.10-0.60); BASOPHIL % 0.5 % (0.0-2.0); EOSINOPHIL % 1.5 % (0-5); GRANULOCYTE % 56.3 % (42.2-75.2); MEAN CORPUSCULAR HGB CONC 33.6 G/DL (33.0-37.0); MEAN CORPUSCULAR VOLUME 89.4 FL (81.0-99.0); MEAN PLATELET VOLUME 10.1 FL (7.4-10.4); PLATELET COUNT 182 /CUMM (130-400); RBC DISTRIBUTION WIDTH 14.4 % (11.5-14.5); RED BLOOD CELL CT 4.35 /CUMM (4.20-5.40); WHITE BLOOD CELL COUNT 8.7 /CUMM (4.8-10.8)
[2018-02-12 14:42] LABS: PTT 61 SEC (25-37)
[2018-02-12 14:53] LABS: HEMATOCRIT 38.9 % (37-47)
[2018-02-12 16:00] VITALS: BP 140/80
--- NOTE | 2018-02-12 22:19 | ECHOCARDIOGRAM REPORT ---
BROCK BURAK Age: 57 : 1960 Gender: F Exam Date: 02/12/2018 10:01 Exam Location: [facility] Ht (in): 63 Wt (lb): 185 BSA: 1.96 BP: 115 / 72 Ordering Physician: Sally Astudillo MD Referring Physician: Sally Astudillo MD Technologist: Justen Medina [facility] Room Number: 110-1 Indications: Chest Pain Rhythm: Technical Quality: FINDINGS Left Ventricle Normal left ventricular size, wall thickness and systolic function with no obvious regional wall motion abnormalities. Normal left ventricular diastolic filling pattern for age. The ejection fraction is visually estimated at 60 %. Right Ventricle The right ventricle is normal in size and function. Right Atrium The right atrium is normal in size. Left Atrium The left atrium is normal in size. The interatrial septum is intact. Mitral Valve The mitral valve is normal in structure and function. There is trace mitral regurgitation. Aortic Valve Structurally normal aortic valve without significant sclerosis or stenosis. There is no aortic regurgitation. Tricuspid Valve The tricuspid valve is normal in structure and function. There is trace tricuspid regurgitation. Pulmonary artery systolic pressure is normal. Pulmonic Valve Structurally normal pulmonic valve. There is no pulmonic regurgitation. Pericardium Normal pericardium without effusion. No pleural effusion. Great Vessels Normal aortic root dimension. The aortic arch and great vessels are well seen and are normal. CONCLUSIONS Normal left ventricular size, wall thickness and systolic function with no obvious regional wall motion abnormalities. Normal left ventricular diastolic filling pattern for age. The ejection fraction is visually estimated at 60 %. The right ventricle is normal in size and function. The left atrium is normal in size. The interatrial septum is intact. The mitral valve is normal in structure and function. There is trace mitral regurgitation. Structurally normal aortic valve without significant sclerosis or stenosis. There is trace tricuspid regurgitation. Pulmonary artery systolic pressure is normal. Normal pericardium without effusion. Normal aortic root dimension. Yulia Michael M.D. (Electronically Signed) Final Date: 12 Feb 2018 22:18 MEASUREMENTS (Male / Female) Normal Values 2D ECHO LV Diastolic Diameter PLAX 4.0 cm 4.2 - 5.9 / 3.9 - 5.3 cm LV Systolic Diameter PLAX 2.4 cm 2.1 - 4.0 cm LV Fractional Shortening PLAX 40.0 % 25 - 46 % LV Ejection Fraction 2D Teich 71.2 % IVS Diastolic Thickness 1.1 cm LVPW Diastolic Thickness 1.1 cm LV Relative Wall Thickness 0.6 LVOT Diameter 1.7 cm Aortic Root Diameter 2.6 cm LA Systolic Diameter LX 3.1 cm 3.0 - 4.0 / 2.7 - 3.8 cm LA Volume 34.0 cm 18 - 58 / 22 - 52 cm Ascending Aorta Diameter 2.8 cm DOPPLER AV Peak Velocity 125.0 cm/s AV Peak Gradient 6.3 mmHg AV Mean Velocity 88.1 cm/s AV Mean Gradient 4.0 mmHg AV Velocity Time Integral 29.1 cm LVOT Peak Velocity 80.5 cm/s LVOT Peak Gradient 2.6 mmHg LVOT Mean Velocity 51.6 cm/s LVOT Mean Gradient 1.0 mmHg LVOT Velocity Time Integral 20.0 cm LVOT Stroke Volume 45.4 cm AV Area Cont Eq vti 1.6 cm AV Area Cont Eq pk 1.5 cm MV Peak Velocity 110.0 cm/s MV Peak Gradient 4.8 mmHg MV Mean Velocity 58.9 cm/s MV Mean Gradient 2.0 mmHg Mitral E Point Velocity 76.5 cm/s Mitral A Point Velocity 68.6 cm/s Mitral E to A Ratio 1.1 MV PHT Velocity 105.0 cm/s MV Deceleration [place] 334.0 cm/s MV Pressure Half Time 94.3 ms MV Area PHT 2.3 cm MV Deceleration Time 306.0 ms PV Peak Velocity 74.4 cm/s PV Peak Gradient 2.2 mmHg PV Mean Velocity 55.5 cm/s PV Mean Gradient 1.0 mmHg PV Velocity Time Integral 19.4 cm LV E' Lateral Velocity 9.6 cm/s Mitral E to LV E' Lateral Ratio 8.0 LV E' Septal Velocity 7.8 cm/s Mitral E to LV E' Septal Ratio 9.8
[2018-02-13] VITALS: BP 140/70
[2018-02-13 01:06] LABS: PTT 57 SEC (25-37)
[2018-02-13 04:50] LABS: ABSOLUTE BASOPHIL COUNT 0.1 /CUMM (0.0-0.2); ABSOLUTE EOSINOPHIL COUNT 0.2 /CUMM (0.0-0.7); ABSOLUTE GRANULOCYTE CT 5.6 /CUMM (1.4-6.5); ABSOLUTE LYMPH COUNT 4.2 /CUMM (1.2-3.4); ABSOLUTE MONOCYTE COUNT 0.5 /CUMM (0.10-0.60); BASOPHIL % 0.5 % (0.0-2.0); EOSINOPHIL % 1.6 % (0-5); HEMATOCRIT 38.3 % (37-47); MEAN CORPUSCULAR HGB 29.8 PG (27.0-31.0); MEAN CORPUSCULAR VOLUME 90.2 FL (81.0-99.0); MEAN PLATELET VOLUME 10.2 FL (7.4-10.4); PLATELET COUNT 165 /CUMM (130-400); RBC DISTRIBUTION WIDTH 14.5 % (11.5-14.5); RED BLOOD CELL CT 4.25 /CUMM (4.20-5.40); WHITE BLOOD CELL COUNT 10.5 /CUMM (4.8-10.8)
--- NOTE | 2018-02-13 05:42 | PN- Resident CRCU ---
Subjective HPI/CRCU Issues: She is comfortable. No new isssues. No dyspnea, CP or palpitations. Vitals in the last 24 hrs Temp 98.6 RR 56-60 NSR BP 144-167/70-88 95% RA Input 2042 ml, Output 1050 ml. Objective Vital Signs & I&O Last 8 Hrs of Vitals and I&O: Laboratory Tests 02/13 02/13 02/13 0740 0400 0030 Chemistry Sodium (137 - 145 mmol/L) 141 Potassium (3.5 - 5.1 mmol/L) 3.8 Chloride (98 - 107 mmol/L) 111 H Carbon Dioxide (22 - 30 mmol/L) 23 Anion Gap (5 - 16) 7 BUN (7 - 17 mg/dL) 18 H Creatinine (0.5 - 1.0 mg/dL) 0.6 Estimated GFR (>60 ml/min) > 60 Glucose (65 - 99 mg/dL) 92 Calcium (8.4 - 10.2 mg/dL) 8.1 L Phosphorus (2.5 - 4.5 mg/dL) 3.8 Magnesium (1.6 - 2.3 mg/dL) 1.7 Total Bilirubin (0.2 - 1.3 mg/dL) 0.4 AST (14 - 36 U/L) 19 ALT (9 - 52 U/L) 20 Albumin (3.5 - 5.0 g/dL) 3.1 L Coagulation APTT (25 - 37 SEC) 106 *H 57 H Hematology CBC w Diff MAN DIFF ORDERED WBC (4.8 - 10.8 /CUMM) 10.5 RBC (4.20 - 5.40 /CUMM) 4.25 Hgb (12.0 - 16.0 G/DL) 12.6 Hct (37 - 47 %) 38.3 MCV (81.0 - 99.0 FL) 90.2 MCH (27.0 - 31.0 PG) 29.8 MCHC (33.0 - 37.0 G/DL) 33.0 RDW (11.5 - 14.5 %) 14.5 Plt Count (130 - 400 /CUMM) 165 MPV (7.4 - 10.4 FL) 10.2 Gran % (42.2 - 75.2 %) 53.0 Lymphocytes % (20.5 - 51.1 %) 40.0 Monocytes % (1.7 - 9.3 %) 4.9 Eosinophils % (0 - 5 %) 1.6 Basophils % (0.0 - 2.0 %) 0.5 Absolute Granulocytes (1.4 - 6.5 /CUMM) 5.6 Segmented Neutrophils (42.2 - 75.2 %) 46 Absolute Lymphocytes (1.2 - 3.4 /CUMM) 4.2 H Lymphocytes (20.5 - 51.1 %) 46 Monocytes (1.7 - 9.3 %) 7 Absolute Monocytes (0.10 - 0.60 /CUMM) 0.5 Absolute Eosinophils (0.0 - 0.7 /CUMM) 0.2 Basophils (0.0 - 2.0 %) 1 Absolute Basophils (0.0 - 0.2 /CUMM) 0.1 Platelet Estimate (ADEQUATE) ADEQUATE Normocytic RBCs VERIFIED Normochromic RBCs VERIFIED Other Body Source Fld Total RBCs Counted (%) 100 Exam General Appearance: alert Other Physical Findings: General Exam: AAOx3, No acute distress, Skin: No rashes, no breakdown; HEENT: PERRLA, EOMI;Neck: Supple, No JVD; No cervical lymphadenopathy;CVS: Reg Rate, Normal S1,S2, No MGR;Resp: Normal air entry, no ronchi/rales;Abdomen: Soft, No tenderness, Normal Bowel Sounds;Neuro: Normal Speech, Strength 5/5 b/l x 4 extremities, Sensation intact, CN III-XII NL, Reflexes 2+;Extremities: No cyanosis, trace pedal edema Current Medications: Current Medications Sig/Jair Start time Last Medication Dose Route Stop Time Status Admin Acetaminophen 650 MG ONCE ONE 02/12 2345 DC 02/12 PO 02/12 2346 2345 Aspirin 81 MG DAILY 02/12 900 DCD 02/13 PO 0851 Atorvastatin Calcium 40 MG 1700 02/12 1700 DCD 02/12 PO 1733 Clopidogrel Bisulfate 75 MG DAILY 02/12 09 DCD 02/13 PO 0851 Heparin Sodium 2,500 UNIT ONCE ONE 02/13 0200 DC 02/13 (Porcine) IV 02/13 0201 0208 Heparin Sodium 5,000 UNIT .STK-MED ONE 02/13 0124 DC (Porcine) IV 02/13 0125 Heparin Sodium 25,000 UNIT Q24H 02/11 1815 DCD 02/12 (Porcine) IV 1734 Sodium Chloride 500 ML Magnesium Sulfate 1 GM ONCE ONE 02/13 0730 DCD 02/13 Dextrose/Water 100 ML IV 02/13 1129 0907 Morphine Sulfate 2 MG Q4P PRN 02/12 2000 DCD IV Nitroglycerin 0.5 GM Q6 02/11 2200 DCD 02/13 TOP 0548 Propranolol HCl 60 MG DAILY 02/12 0900 DCD 02/13 PO 0851 Impression/Plan Impression/Problem List Impression: Ms Mixon is a 57 year old woman w/ a PMHx of asthma, smoker ([id number]) multiple sclerosis (dx'ed app3 yrs ago, currently on Ocrelizumab, and follows up with Dr. Gusman), superficial thrombophlebitis, anxiety, hypertension came to the hospital with a chief concern of substernal chest pain that started on the night prior of presentation to , likely secondary to NSTEMI. At the time of admission-temperature 98.6, pulse rate 106, respiration 18, blood pressure 142/92, pulse ox 98% on room air. She was admitted to intensive care unit, since she had elevated troponin up to 1.05. She remained asymptomatic while she was in the ICU. Pertinent lab findings- WBC 13.1 (likely reactive)-->10.5(5/4) Hemoglobin 16.0-->12.6(5/4) Platelets 243-->165(5/4) Sodium 145, potassium 3.9, magnesium 1.8 Bicarbonate 28 Renal function: BUN 18, creatinine 0.8-->0,6(5/4) Liver chemistries: AST 24, ALT 21, alkaline phosphatase 84 Troponin I 1.05-->0.73-->0.55 ProBNP 82 Hemoglobin A1c 5.5 INR 1.11. Lipid panel: Triglycerides 97, cholesterol 148, LDL 86, TSH 1.48 Chest x-ray did not show any acute pulmonary findings. EKG revealed nonspecific T-wave changes in V1-V2. No ST-T wave changes noted. Normal sinus rhythm, normal axis. No LVH. U tox positive for amphetamines, and cannabis. Cocaine negative. Imaging in the last 24 hours: Echocardiogram 02/12/2018- Normal left ventricular size, wall thickness and systolic function with no obvious regional wall motion abnormalities. Normal left ventricular diastolic filling pattern for age. The ejection fraction is visually estimated at 60 %. The right ventricle is normal in size and function. The left atrium is normal in size. The interatrial septum is intact. The mitral valve is normal in structure and function. There is trace mitral regurgitation. Structurally normal aortic valve without significant sclerosis or stenosis. There is trace tricuspid regurgitation. Pulmonary artery systolic pressure is normal. Normal pericardium without effusion. Normal aortic root dimension. Ultrasound bilateral lower extremity venous Doppler-negative for venous thromboembolism. Etiology in this case is likely NSTEMI with symptoms of unstable angina + elevated cardiac enzymes with positive cardiac risk factors smoking, age > 35, HTN, chronic inflammatory state. Other etiologies such as anxiety, arrythmias, aortic dissection, GERD, MVP, myocarditis, coronary artery spasm are to considered as differentials. Patients with unstable angina requiring admission to inpatient hospital, and considering her intermedite to high risk, she would need a cardiac catheterization. Respiratory: Stable at this time. Oxygen supplemental as needed, which should be continued prn. Infectious: Stable. WBC 10.5. No signs of systemic infection at this time. If she has any fever, white count, we could pancultured. Circulatory: NSTEMI. Given her risk factors, she would need cardiac catheterization. -admit to telemetry for cardiac monitoring of any arrythmias -She was given Plavix 300 mg stat and daily aspirin, plavix and Atorvastatin 80mg daily. -serial electrocardiograms, cardiac enzymes ruled out for acute UT. -for the management of angina- SL nitroglycerin q5 min x 3, than can use iv nitro and iv morphine for pain control(hold for low BP) -She was on propranol which was continued as per cardiology. -IV heparin, given high GENARO score. -discuss early intervention with cardiac catheterization, if pt develops uncontrolled angina, dynamic EKG changes. -Plan for a cardiac cath on 02/13/18, as per cardiology. Arrangements made. Discuss risk versus benefits with the patient. Patient aware of the risks, which include bleeding, even leading to . Hematology: Need to rule out DVT, given her h/o smoking. D-dimer is low, and low wells score, PE should be considered in differential. -Check US dopplers lower extremities. -If US negative, consider CTA if cath is negative, as per Dr. Zepeda. Metabolic- Currently stable. Monitor renal function closely. - It should be kept in mind, that she is in to get a cardiac cath in the next 24 hours and be mindful of contrast load. Alimentary-nothing by mouth at this time. If the patient is not being transferred, for a cardiac cath, would advance her diet today. DVT prophylaxis: intravenous heparin Diet NPO ICU checklist: #1 Central line- none #2 Arterial line - none #3 Bundy catheter- none #4 Rectal tube- none #5 NG tube- none #6 IV/peripheral line- 02/11/18 #7 IV drips- iv heparin. #8 Vent settings- none #9 pressors-none. Final recs after d/w the attending.. Problem List: 1. NSTEMI (non-ST elevated myocardial infarction) 2. Joint pain Pain Ratin Tomorrow's Labs & Rationales: no labs necessary. pt will be transferred. Plan DVT/Prophylaxis: pharmacological Code Status: Full Code
[2018-02-13 08:00] VITALS: BP 140/80
[2018-02-13 09:11] VITALS: BP 151/84
[2018-02-13 09:22] LABS: PTT 106 SEC (25-37)
[2018-02-19] MEDS ORDERED: KEFLEX500 M1 PO (00:28)
[2018-03-04] MEDS ORDERED: NORCO 5-325 TA1 EACH PO (18:29)
[2018-03-04] MEDS ORDERED: CYCLOBENZAPRINE5 M2 PO (18:29)
== END 2018-02-13 09:50 | disposition short-term general hospital (02) | DRG 190 ==
LOC: ERH 16:40 → CRI 18:01 → ERHI 18:01 → ENRESERV 20:40 → ENTRNSPT 20:59 → EDTRNSPT 21:00 → CRI 21:00 → EDTRNSPTSTS 21:00 → CMPTRNSPT 21:19 → CRI 02-12 07:26
PROVIDERS: Hospitalist; Internal Medicine; Internal Medicine Critical Care Medicine; Internal Medicine Endocrinology, Diabetes & Metabolism; Physician Assistant Medical; Student in an Organized Health Care Education/Training Program
DX: I21.4 Non-ST elevation (NSTEMI) myocardial infarction (principal); G35 Multiple sclerosis; I10 Essential (primary) hypertension; G50.0 Trigeminal neuralgia; F31.9 Bipolar disorder, unspecified; F17.210 Nicotine dependence, cigarettes, uncomplicated; F12.10 Cannabis abuse, uncomplicated; F15.10 Other stimulant abuse, uncomplicated; E66.9 Obesity, unspecified; Z68.31 Body mass index [BMI] 31.0-31.9, adult; I80.9 Phlebitis and thrombophlebitis of unspecified site; Z88.8 Allergy status to other drugs, medicaments and biological substances; Z88.0 Allergy status to penicillin; Z79.82 Long term (current) use of aspirin; D72.829 Elevated white blood cell count, unspecified; F41.9 Anxiety disorder, unspecified; J45.909 Unspecified asthma, uncomplicated
CPT/HCPCS: ERO; 36415; 36592; 71045; 80307; 81001; 82436; 93005; 93010; 93306; 93970; 99291; J1644; J3490

== ENCOUNTER 2018-06-26 11:27 | Emergency (ER) | payer OTHER ==
[~2018-06-26] VITALS: Ht 162.6 cm; Wt 86.2 kg
[~2018-06-26 11:27] MED LIST changes: +ASPIRIN81 M4 PO; +ATORVASTATIN CA40 M1 PO; +CYCLOBENZAPRINE5 M2 PO; +HEPARIN-D525000 UNIT IV; +INDERAL LA60 M1 PO; +KEFLEX500 M1 PO; +NITRO-BID1 GM TOP; +NORCO 5-325 TA1 EACH PO; +PLAVIX75 M1 PO
[2018-06-26 12:32] LABS: ABSOLUTE BASOPHIL COUNT 0.1 /CUMM (0.0-0.2); ABSOLUTE EOSINOPHIL COUNT 0.1 /CUMM (0.0-0.7); ABSOLUTE GRANULOCYTE CT 6.6 /CUMM (1.4-6.5); ABSOLUTE MONOCYTE COUNT 0.4 /CUMM (0.10-0.60); BASOPHIL % 0.6 % (0.0-2.0); EOSINOPHIL % 0.8 % (0-5); GRANULOCYTE % 64.7 % (42.2-75.2); HEMATOCRIT 47.2 % (37-47); MEAN CORPUSCULAR HGB 29.6 PG (27.0-31.0); MEAN CORPUSCULAR HGB CONC 32.8 G/DL (33.0-37.0); MEAN CORPUSCULAR VOLUME 90.2 FL (81.0-99.0); MEAN PLATELET VOLUME 9.2 FL (7.4-10.4); PLATELET COUNT 256 /CUMM (130-400); RBC DISTRIBUTION WIDTH 14.1 % (11.5-14.5); RED BLOOD CELL CT 5.23 /CUMM (4.20-5.40); WHITE BLOOD CELL COUNT 10.2 /CUMM (4.8-10.8)
[2018-06-26] MEDS ORDERED: HYDROCORTISO453.6 G1 TOP (16:02)
--- NOTE | 2018-06-26 16:02 | ED SKIN/ALLERGY COMPLAINT ---
History of Present Illness General Chief Complaint: Skin Rash/ Abcess Stated Complaint: SIB DR. BARAJAS FOR RASH ON FACE Source: patient Exam Limitations: no limitations Vital Signs & Intake/Output Vital Signs & Intake/Output Vital Signs Date Time Temp Pulse Resp B/P B/P Pulse O2 O2 Flow FiO2 Mean Ox Delivery Rate 06/26 1608 98.7 64 18 124/67 97 Room Air 06/26 1604 Room Air 06/26 1134 97.0 71 20 136/90 97 Room Air Allergies Coded Allergies: Penicillins (Severe, UNKNOWN PER PT 03/04/18) Reconcile Medications Aspirin (Aspirin*) 81 MG TAB.CHEW 1 TAB PO DAILY HEART HEALTH (Reported) Atorvastatin Calcium 40 MG TABLET 40 MG PO 1700 hlp Cephalexin (Keflex) 500 MG CAPSULE 1 CAP PO Q6H CELLULITIS Clopidogrel Bisulfate (Plavix) 75 MG TABLET 75 MG PO DAILY CAD Cyanocobalamin (Vitamin B-12) (Cyanocobalamin Injection) 1,000 MCG/ML VIAL 1 ML IM QSUN VITAMIN SUPPORT (Reported) Cyclobenzaprine HCl 5 MG TABLET 1 TAB PO TIDPRN PRN PAIN Dextroamphetamine/Amphetamine (Dextroamp-Amphetamin 10 MG Tab) 10 MG TABLET 1 TAB PO BID ADHD (Reported) Ergocalciferol (Vitamin D2) (Vitamin D2) 50,000 UNIT CAPSULE 1 CAP PO Q FRI AND FRIDAY VITAMIN SUPPORT (Reported) Heparin Sodium,Porcine/D5w (Heparin-D5w 25,000 Unit/250 Ml) 25,000 UNIT/250 ML ( 100 UNIT/ML) IV.SOLN 1 U IV D ACS, NSTEMI Hydrocodone/Acetaminophen ([place] 5-325 Tablet) 5 MG-325 MG TABLET 1 TAB PO BIDP PRN BACK PAIN Hydrocortisone 1 % CREAM..G. 1 AIME TOP BID rash apply to affected area(s) Nitroglycerin (Nitro-Bid) 2 % OINT...G. 0.5 GM TOP Q6 CHEST PAIN Propranolol LA (Inderal LA) 60 MG CAP.SA.24H 1 CAP PO DAILY HIGH BLOOD PRESSURE (Reported) Triage Note: PT TO ED FOR RASH ON FACE X 1 MONTH. TOLD TO COME TO ED BY DR BARAJAS. Triage Nurses Notes Reviewed? yes Onset: Gradual Duration: week(s): Timing: recent history Severity: moderate Location: face HPI: 58-year-old female with history of MS since in by Miya Barajas MD for rash on her face 1 month. Patient reports a red rash which is described as itchy and located around her mouth and nose for 1 month. Patient has not taken any medications or applied any creams for the rash. She called her primary care doctor today to request dermatology follow-up and she reports that her doctor told her she may require labs before seeing the hotel services supervisor. Patient googled her rash and believes she may have an issue with her thyroid. She denies new soaps/detergents, new medications, fevers, vomiting, sick contact. (Corrie Gomes) Past History Travel History Traveled to [place] past 21 day No Medical History Any Pertinent Medical History? 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 MOTHER (UTERINE CANCER). Hx Contributory? No (Corrie Gomes) Review of Systems Review of Systems Constitutional: Reports: no symptoms. EENTM: Reports: no symptoms. Respiratory: Reports: no symptoms. Cardiovascular: Reports: no symptoms. GI: Reports: no symptoms. Genitourinary: Reports: no symptoms. Musculoskeletal: Reports: no symptoms. Skin: Reports: see HPI. Neurological/Psychological: Reports: no symptoms. Hematologic/Endocrine: Reports: no symptoms. Immunologic/Allergic: Reports: no symptoms. All Other Systems: Reviewed and Negative (Corrie Gomes) Physical Exam Physical Exam General Appearance: well developed/nourished, no apparent distress, alert, awake Head: atraumatic Eyes: Bilateral: normal appearance. Ears, Nose, Throat: erythematous, dry, slightly scaling rash surrounding mouth, nose, and extending to cheeks, no swelling, no warmth, nontender Neck: normal inspection, supple, full range of motion Respiratory: normal breath sounds, no respiratory distress, lungs clear Cardiovascular: regular rate/rhythm Back: normal inspection, normal range of motion Extremities: normal inspection Neurologic/Psych: awake, alert, oriented x 3 Skin: see rash on face as described above (Corrie Gomes) Progress Differential Diagnosis: abscess/cellulitis, allergic reaction, contact dermatitis, drug reaction, piyriasis rosea, urticaria, seborrheic dermatitis, rosacea Plan of Care: Orders Procedure Date/time Status THYROID STIMULATING HORMONE 06/26 1138 Complete HIGH SENSITIVITY CRP 06/26 113 Complete WESTERGREN SED RATE 06/26 113 Complete COMPREHENSIVE METABOLIC PANEL 06/26 1138 Complete CBC WITHOUT DIFFERENTIAL 06/26 1138 Complete Laboratory Tests 06/26/18 1217: Anion Gap 10, Estimated GFR > 60, BUN/Creatinine Ratio 16.7, Glucose 98, Calcium 9.2, Total Bilirubin 0.6, AST 16, ALT 22, Alkaline Phosphatase 87, C-React Prot High Sens 6.6 H, Total Protein 7.1, Albumin 4.3, Globulin 2.8, Albumin/Globulin Ratio 1.5, TSH 2.060, CBC w Diff NO MAN DIFF REQ, RBC 5.23, MCV 90.2, MCH 29.6, MCHC 32.8 L, RDW 14.1, MPV 9.2, Gran % 64.7, Lymphocytes % 29.8, Monocytes % 4.1, Eosinophils % 0.8, Basophils % 0.6, Absolute Granulocytes 6.6 H, Absolute Lymphocytes 3.0, Absolute Monocytes 0.4, Absolute Eosinophils 0.1, Absolute Basophils 0.1, ESR Westergren 9 Given the duration of the patient's symptoms rashes not likely to be consistent with infectious etiology. Patient is afebrile, no leukocytosis. She appears consistent with seborrheic dermatitis. Will initiate hydrocortisone cream, low potency for the face. Patient informed she will require follow-up with a hotel services supervisor. She agrees with the plan of care. (Corrie Gomes) Departure Departure Disposition: HOME OR SELF CARE Condition: Stable Clinical Impression Primary Impression: Rash Referrals: Diana Hebert DO (PCP/Family) Additional Instructions: Begin applying cream, thin layer, only to the skin affected by a rash. Follow- up with hotel services supervisor as soon as possible. Also follow-up with her primary care doctor regarding the lab tests ordered here today. Return with worsening symptoms or concerns. Please note that there might be incidental findings in your evaluation that are unrelated to the current emergency department visit. Please notify your primary care doctor about this emergency department visit in order to obtain and review all of the testing performed so that these incidental findings can be monitored as needed. If you had an x-ray performed, please understand that some fractures may not be seen on the initial set of x-rays. If your symptoms persist you might need a repeat set of x-rays to check for such a fracture. If you had a laceration evaluated, please understand that foreign bodies such as glass or wood may not be visible to the naked eye or on plain x-rays. If the wound becomes red, swollen, increasingly more painful or if there is any drainage from the wound, please have it reevaluated by a physician for the possibility of a retained foreign body. If you're unable to follow up as outlined in the discharge instructions please return to the emergency department. Thank you for choosing the [facility] Emergency Department for your care. It was a pleasure to serve you today. Departure Forms: Customer Survey General Discharge Information Prescriptions: Current Visit Scripts Hydrocortisone 1 AIME TOP BID #30 GM apply to affected area(s) (Torie ANTONIO,Corrie Waddell) PA/SIZE MARKER Co-Sign Statement Statement: ED Attending supervision documentation- [] I saw and evaluated the patient. I have also reviewed all the pertinent lab results and diagnostic results. I agree with the findings and the plan of care as documented in the PA's/SIZE MARKER's documentation. [x] I have reviewed the ED Record and agree with the PA's/SIZE MARKER's documentation. [] Additions or exceptions (if any) to the PAs/SIZE MARKER's note and plan are summarized below: [] (Masood REICH,[facility])
[2018-06-26 16:08] VITALS: BP 124/67
== END 2018-06-26 16:10 ==
LOC: ERH 11:27
PROVIDERS: Physician Assistant Medical
DX: R21 Rash and other nonspecific skin eruption (principal); G35 Multiple sclerosis; G50.0 Trigeminal neuralgia; I10 Essential (primary) hypertension